=== PATIENT | female | born 1985 | race African-American/Black ===

== ENCOUNTER 2024-05-07 14:03 | Inpatient (IN) | payer MEDICAID, OTHER ==
[~2024-05-07] VITALS: Ht 165.1 cm; Wt 85.2 kg
[2024-05-07 15:13] VITALS: RESP 19
[2024-05-07 15:19] LABS: Basophils # (auto) 0 10 ^3/uL (0-0.2); Basophils % (auto) 0.1 % (0.0-2.0); Eosinophils # (auto) 0 10 ^3/uL (0-0.8); Eosinophils % (auto) 0.1 % (0.0-7.0); Hematocrit 13.8 % (36.0-46.0); Lymphocytes # (auto) 0.3 10 ^3/uL (0.4-5.4); Lymphocytes % (auto) 2.6 % (10.0-50.0); Mean Corpuscular Hgb Conc. 26.2 g/dL (32.0-36.0); Mean Corpuscular Volume 64.7 fL (80.0-100.0); Monocytes # (auto) 0.7 10 ^3/uL (0-1.3); Monocytes % (auto) 5.8 % (0.0-12.0); Neutrophils # (auto) 11.4 10 ^3/uL (1.6-8.6); Neutrophils % (auto) 91.4 % (37.0-80.0); Nucleated Red Blood Cells % 0.3 %; Red Blood Cells 2.14 10^6/uL (4.0-5.20); Red Cell Distribution Width 22.2 % (11.8-14.3); White Blood Cell 12.5 10^3/uL (4.4-10.8)
[2024-05-07 15:22] LABS: Hemoglobin 3.6 g/dL (12.2-16.2)
[2024-05-07 15:27] LABS: Chloride 110 mmol/L (98-107); Potassium 3.2 mmol/L (3.5-5.1); Sodium 139 mmol/L (136-145)
[2024-05-07 15:28] LABS: Anion Gap 9 (5-15); Calcium 8.2 mg/dL (8.7-10.4); Carbon Dioxide 20 mmol/L (20-30)
[2024-05-07 15:33] LABS: BUN/Creatinine Ratio 13.7 (10.0-20.0); Blood Urea Nitrogen 10 mg/dL (9-23); Glucose 112 mg/dL (74-106)
[2024-05-07 15:36] LABS: INR 0.96 (0.9-1.15); Partial Thromboplastin Time < 20.0 SEC (24.5-34.5); Prothrombin Time 10.2 sec (9.3-11.8)
[2024-05-07] MEDS: SODIUM CHLORIDE 0.9% 1,000 ML IV ONE (15:43)
[2024-05-07] MEDS: ACETAMINOPHEN 325 MG TAB PO ONE (16:06)
[2024-05-07 16:25] VITALS: BP 114/40; PULSE 115; RESP 18; TEMP 98.1
[2024-05-07 16:30] VITALS: BP 113/45; PULSE 110; RESP 19; TEMP 98.1
[2024-05-07 16:45] VITALS: BP 116/42; PULSE 96; RESP 18; TEMP 98.2
[2024-05-07] MEDS: POTASSIUM CHL 20MEQ/100ML 100 ML IV SCH (17:51)
[2024-05-07] MEDS ORDERED: NITROGLYCERIN 0.4 MG SL TAB SL PRN (18:15)
[2024-05-07 18:42] VITALS: BP 132/53; PULSE 102; RESP 18; TEMP 98.1
[2024-05-07 19:10] VITALS: PULSE 114; RESP 26; O2SAT 98
[2024-05-07 19:31] LABS: Hematocrit 24.9 % (36.0-46.0); Hemoglobin 7.5 g/dL (12.2-16.2)
[2024-05-07] MEDS: HYDROmorphone HCL 2 MG/ML VL/or syr IV PRN (19:31)
[2024-05-07] MEDS: HYDROcodone-ACET 5/325MG TAB PO PRN (22:38)
[2024-05-07] MEDS: LORazepam 2MG/ML-1ML VIAL IV PRN (23:06)
[2024-05-08] VITALS (52 sets, daily range): BP systolic 54–113; BP diastolic 21–73; PULSE 83–165; RESP 18–43; TEMP 97.8–103.4; O2SAT 81–100
[2024-05-08] MEDS: POTASSIUM CHL 20MEQ/100ML 100 ML IV ONE (00:30)
[2024-05-08] MEDS: SODIUM CHLORIDE 0.9% 1,000 ML IV SCH (00:30)
[2024-05-08] MEDS: ACETAMINOPHEN 325 MG TAB PO PRN (05:07)
[2024-05-08 07:35] LABS: Basophils # (auto) 0 10 ^3/uL (0-0.2); Eosinophils # (auto) 0 10 ^3/uL (0-0.8); Eosinophils % (auto) 0.1 % (0.0-7.0); Lymphocytes # (auto) 0.3 10 ^3/uL (0.4-5.4); Mean Corpuscular Hgb Conc. 30.6 g/dL (32.0-36.0)
[2024-05-08 07:36] LABS: Hematocrit 21.9 % (36.0-46.0); Mean Corpuscular Volume 75.3 fL (80.0-100.0); Monocytes # (auto) 0.2 10 ^3/uL (0-1.3); Monocytes % (auto) 2.1 % (0.0-12.0); Neutrophils # (auto) 8.1 10 ^3/uL (1.6-8.6); Neutrophils % (auto) 94.8 % (37.0-80.0); Red Blood Cells 2.91 10^6/uL (4.0-5.20); White Blood Cell 8.5 10^3/uL (4.4-10.8)
[2024-05-08 07:37] LABS: Red Cell Distribution Width 27.9 % (11.8-14.3)
[2024-05-08 07:38] LABS: Hemoglobin 6.7 g/dL (12.2-16.2)
[2024-05-08 07:50] LABS: Alanine Aminotransferase 12 U/L (7-40); Alkaline Phosphatase 29 U/L (46-116); Anion Gap 13 (5-15); Aspartate Aminotransferase 15 U/L (13-40); BUN/Creatinine Ratio 4.4 (10.0-20.0); Blood Urea Nitrogen 6 mg/dL (9-23); Calcium 8.1 mg/dL (8.7-10.4); Carbon Dioxide 14 mmol/L (20-30); Chloride 109 mmol/L (98-107); Glucose 105 mg/dL (74-106); Potassium 3.2 mmol/L (3.5-5.1); Sodium 136 mmol/L (136-145)
[2024-05-08 07:51] LABS: Bilirubin, Total 1.5 mg/dL (0.2-1.0); Total Protein 5.8 g/dL (5.7-8.2)
[2024-05-08 08:44] LABS: Anisocytosis Moderate; Hypochromia Moderate
[2024-05-08 08:46] LABS: Large Platelets FEW; Platelet Estimate Adequa
[2024-05-08] MEDS: MORPHINE SULFATE INJ 2 MG/ml SYRG IV PRN (09:37)
[2024-05-08 10:21] LABS: INR 1.11 (0.9-1.15); Partial Thromboplastin Time 24.6 SEC (24.5-34.5); Prothrombin Time 11.7 sec (9.3-11.8)
[2024-05-08] MEDS: levoFLOXacin 500MG 100 ML IV SCH (10:51)
[2024-05-08] MEDS: ESTROGENS, CONJUGATED 25 MG VIAL IV SCH (10:54)
[2024-05-08 11:29] LABS: Base Excess -13.1 mmol/L (-2.0-2.0)
[2024-05-08] MEDS: methylPREDNISolone SOD SUCC 125 MG/2 ML VL IV ONE (11:54)
[2024-05-08] MEDS: methylPREDNISolone SOD SUCC 1,000 MG in SODIUM CHL 0.9% 250 ML IV ONE (12:56)
[2024-05-08] MEDS: SODIUM BICARB 8.4% 50Meq/50ml SYR Vial IV ONE (13:45)
[2024-05-08 14:10] LABS: Hemoglobin 6.1 g/dL (12.2-16.2)
[2024-05-08 14:14] LABS: Potassium 3.2 mmol/L (3.5-5.1)
[2024-05-08 14:29] LABS: Lactic Acid w/Reflex 9.3 mmol/L (0.4-2.0); Magnesium 0.8 mg/dL (1.6-2.6)
[2024-05-08] MEDS: MAGNESIUM SULFATE 1GM/100ML 100 ML IV SCH ×2 (14:58→21:48)
[2024-05-08] MEDS: SODIUM BICARB 50mEq/50ml Vial 100 ML in D5W 5% 1,000 ML IV SCH (15:15)
[2024-05-08] MEDS: ONDANSETRON HCL 4 MG/2 ML VIAL IV PRN (16:04)
[2024-05-08] MEDS: NOREPINEPHRINE 8 MG/250ML KIT 250 ML IV SCH (17:20)
[2024-05-08] MEDS: FUROSEMIDE 20 MG/2 ML VIAL IV ONE ×2 (18:42→21:30)
[2024-05-08] MEDS: AMPICILLIN & SULBACTAM SODIUM 3 GM in SODIUM CHL 0.9% 100 ML IV SCH (18:42)
[2024-05-08] MEDS: PHENYLEPHRINE IV 250 ML IV SCH (18:45)
[2024-05-08 19:09] LABS: Basophils # (auto) 0 10 ^3/uL (0-0.2); Eosinophils # (auto) 0 10 ^3/uL (0-0.8)
[2024-05-08 19:11] LABS: Basophils % (auto) 0.2 % (0.0-2.0); Hematocrit 24.7 % (36.0-46.0); Hemoglobin 7.3 g/dL (12.2-16.2); Lymphocytes # (auto) 0.2 10 ^3/uL (0.4-5.4); Lymphocytes % (auto) 1.1 % (10.0-50.0); Mean Corpuscular Hemoglobin 23.6 pg (28.0-32.0); Mean Corpuscular Hgb Conc. 29.4 g/dL (32.0-36.0); Mean Corpuscular Volume 80.2 fL (80.0-100.0); Monocytes # (auto) 0.8 10 ^3/uL (0-1.3); Monocytes % (auto) 3.5 % (0.0-12.0); Neutrophils # (auto) 20.7 10 ^3/uL (1.6-8.6); Neutrophils % (auto) 95.2 % (37.0-80.0); Nucleated Red Blood Cells % 0.7 %; Red Blood Cells 3.08 10^6/uL (4.0-5.20); White Blood Cell 21.7 10^3/uL (4.4-10.8)
[2024-05-08] MEDS: VASOPRESSIN 20 UNITS in SODIUM CHL 0.9% 99 ML IV SCH (19:19)
[2024-05-08] MEDS: KETOROLAC TROMETH 30 MG/ML 1ML VIAL IV PRN (19:27)
[2024-05-08 19:30] LABS: Alanine Aminotransferase 12 U/L (7-40); Alkaline Phosphatase 18 U/L (46-116); Anion Gap 21.00001 (5-15); Aspartate Aminotransferase 24 U/L (13-40); BUN/Creatinine Ratio 4.7 (10.0-20.0); Bilirubin, Total 1.1 mg/dL (0.2-1.0); Blood Urea Nitrogen 13 mg/dL (9-23); Calcium 7.5 mg/dL (8.7-10.4); Chloride 106 mmol/L (98-107); Glucose 189 mg/dL (74-106); Potassium 3.9 mmol/L (3.5-5.1); Sodium 137 mmol/L (136-145)
[2024-05-08 19:31] LABS: Total Protein 5.6 g/dL (5.7-8.2)
[2024-05-08 19:45] LABS: Lactic Acid w/Reflex 10.9 mmol/L (0.4-2.0)
[2024-05-08 19:46] LABS: Carbon Dioxide < 10 mmol/L (20-30)
[2024-05-08 19:58] LABS: Anisocytosis Moderate; Platelet Estimate Decreased
[2024-05-08 19:59] LABS: Hypochromia Moderate
[2024-05-08] MEDS: ALBUMIN 25% 100 ML IV SCH (20:13)
[2024-05-08 20:28] LABS: Urine Bacteria FEW /hpf (None Seen); Urine Blood 3+ /uL (Negative); Urine Clarity Ex.Turbid (Clear); Urine Color Dark-Brown (Yellow); Urine Mucus FEW (None Seen); Urine Protein, UAD 2+ (Negative); Urine Specific Gravity 1.018 (1.001-1.035); Urine Urobilinogen Normal (Negative); Urine WBC 1660 /hpf (0 - 5); Urine WBC Clumps PRESENT /hpf (None Seen); Urine pH 5.5 (5.0-9.0)
[2024-05-08] MEDS: SODIUM CHLORIDE 0.9% 1,000 ML IV ONE (21:00)
[2024-05-08] MEDS: DOXYCYCLINE 100MG/250ML 250 ML IV SCH (21:21)
[2024-05-08] MEDS: SODIUM BICARB 50mEq/50ml Vial 150 ML in D5W 5% 1,000 ML IV SCH (21:58)
[2024-05-08 22:08] LABS: Hematocrit 25.6 % (36.0-46.0); Hemoglobin 7.2 g/dL (12.2-16.2); Mean Corpuscular Hemoglobin 23.8 pg (28.0-32.0); Mean Corpuscular Hgb Conc. 28.1 g/dL (32.0-36.0); Mean Corpuscular Volume 84.8 fL (80.0-100.0); Red Blood Cells 3.02 10^6/uL (4.0-5.20); White Blood Cell 22.7 10^3/uL (4.4-10.8)
[2024-05-08 22:12] LABS: Red Cell Distribution Width 27.2 % (11.8-14.3)
[2024-05-08 22:13] LABS: Basophils % (manual) 0 (0.0-2.0); Blast Cells 0; Eosinophils % (manual) 0 (0-7); Myelocytes % 0; Promyelocytes % 0; Reactive Lymphocytes 0
[2024-05-08 22:47] LABS: Band Neutrophils % (manual) 25; Lymphocytes % (manual) 2 (10.0-50.0); Monocytes % (manual) 5 (0-12)
[2024-05-08 22:48] LABS: Anisocytosis Moderate; Hypochromia Moderate; Large Platelets FEW; Metamyelocytes % 1; Platelet Estimate Decreased
[2024-05-09] VITALS (99 sets, daily range): BP systolic 49–184; BP diastolic 18–108; PULSE 62–119; RESP 12–35; TEMP 96.9–99.5; O2SAT 94–100
[2024-05-09 01:59] LABS: Hemoglobin 8.5 g/dL (12.2-16.2)
[2024-05-09 02:01] LABS: Hematocrit 27.6 % (36.0-46.0); Mean Corpuscular Hemoglobin 24.9 pg (28.0-32.0); Mean Corpuscular Hgb Conc. 30.7 g/dL (32.0-36.0); Mean Corpuscular Volume 81.2 fL (80.0-100.0); Red Cell Distribution Width 25.1 % (11.8-14.3); White Blood Cell 25.6 10^3/uL (4.4-10.8)
[2024-05-09 02:02] LABS: Basophils % (manual) 0 (0.0-2.0); Blast Cells 0; Eosinophils % (manual) 0 (0-7); Metamyelocytes % 0; Promyelocytes % 0; Reactive Lymphocytes 0
[2024-05-09 02:08] LABS: Chloride 103 mmol/L (98-107); Potassium 3.8 mmol/L (3.5-5.1); Sodium 134 mmol/L (136-145)
[2024-05-09 02:10] LABS: Anion Gap 18 (5-15); Carbon Dioxide 13 mmol/L (20-30)
[2024-05-09 02:15] LABS: BUN/Creatinine Ratio 5.5 (10.0-20.0); Blood Urea Nitrogen 12 mg/dL (9-23); Glucose 285 mg/dL (74-106)
[2024-05-09 02:19] LABS: Anisocytosis Slight; Band Neutrophils % (manual) 18; Hypochromia Slight; Lymphocytes % (manual) 1 (10.0-50.0); Monocytes % (manual) 6 (0-12); Myelocytes % 1; Platelet Estimate Decreased
[2024-05-09 02:20] LABS: Large Platelets FEW
[2024-05-09] MEDS: FUROSEMIDE 20 MG/2 ML VIAL IV ONE (03:22)
[2024-05-09 04:59] LABS: Basophils # (auto) 0 10 ^3/uL (0-0.2); Eosinophils # (auto) 0 10 ^3/uL (0-0.8); Hemoglobin 8.1 g/dL (12.2-16.2); Monocytes % (auto) 4.5 % (0.0-12.0); Nucleated Red Blood Cells % 0.2 %
[2024-05-09 05:01] LABS: Basophils % (auto) 0.1 % (0.0-2.0); Hematocrit 26.1 % (36.0-46.0); Lymphocytes # (auto) 0.4 10 ^3/uL (0.4-5.4); Lymphocytes % (auto) 1.5 % (10.0-50.0); Mean Corpuscular Hemoglobin 24.9 pg (28.0-32.0); Mean Corpuscular Volume 80.3 fL (80.0-100.0); Neutrophils % (auto) 93.9 % (37.0-80.0); Red Blood Cells 3.25 10^6/uL (4.0-5.20); White Blood Cell 23.4 10^3/uL (4.4-10.8)
[2024-05-09 05:11] LABS: Red Cell Distribution Width 25.4 % (11.8-14.3)
[2024-05-09 05:43] LABS: Lactic Acid w/Reflex 9.3 mmol/L (0.4-2.0)
[2024-05-09] MEDS ORDERED: MORPHINE SULFATE INJ 2 MG/ml SYRG IV PRN (08:15)
[2024-05-09] MEDS ORDERED: NITROGLYCERIN 0.4 MG SL TAB SL PRN (08:15)
[2024-05-09] MEDS ORDERED: cefTRIAXone 1GM/50ML D5W 50 ML IV SCH (09:00)
[2024-05-09] MEDS ORDERED: fentaNYL CITRATE 100 MCG/2 ML VL ONE ×2 (09:23→14:52)
[2024-05-09] MEDS ORDERED: KETAMINE 50mg/ML 1ml syringe ONE ×2 (09:23→13:47)
[2024-05-09] MEDS ORDERED: ROCURONIUM 10MG/ML 10ML VIAL IV ONE (09:24)
[2024-05-09] MEDS ORDERED: MEPERIDINE HCL (50 MG/ML) 1 ML VIAL ONE ×2 (09:24→15:08)
[2024-05-09] MEDS ORDERED: LIDOCAINE 1% INJ PF 5ML AMP ONE (09:24)
[2024-05-09] MEDS ORDERED: LIDOCAINE HCL 2% TOP JELLY 5ML TOP ONE (09:24)
[2024-05-09] MEDS ORDERED: MIDAZOLAM HCL 2MG/2ML 2ml VIAL (1mg/ml) ONE ×2 (09:24→15:10)
[2024-05-09] MEDS ORDERED: ETOMIDATE (2MG/ML) 20ML VIAL IV ONE (09:24)
[2024-05-09] MEDS ORDERED: SODIUM CHLORIDE LOCK 50 ML ONE (09:24)
[2024-05-09 09:59] LABS: Anion Gap 17 (5-15); Carbon Dioxide 18 mmol/L (20-30); Chloride 100 mmol/L (98-107); Potassium 3.4 mmol/L (3.5-5.1); Sodium 135 mmol/L (136-145)
[2024-05-09 10:00] LABS: Calcium 8.4 mg/dL (8.7-10.4)
[2024-05-09 10:05] LABS: BUN/Creatinine Ratio 7.9 (10.0-20.0); Blood Urea Nitrogen 13 mg/dL (9-23); Glucose 228 mg/dL (74-106)
[2024-05-09] MEDS: LIDOCAINE W/ EPINEPHRINE 1% 20ML VIAL ONE (10:09)
[2024-05-09 11:08] LABS: Basophils # (auto) 0 10 ^3/uL (0-0.2); Basophils % (auto) 0.1 % (0.0-2.0); Eosinophils # (auto) 0 10 ^3/uL (0-0.8); Hematocrit 24.8 % (36.0-46.0); Hemoglobin 7.7 g/dL (12.2-16.2); Lymphocytes # (auto) 0.3 10 ^3/uL (0.4-5.4); Lymphocytes % (auto) 1.3 % (10.0-50.0); Mean Corpuscular Hemoglobin 24.2 pg (28.0-32.0); Mean Corpuscular Volume 78.2 fL (80.0-100.0); Monocytes # (auto) 1.2 10 ^3/uL (0-1.3); Monocytes % (auto) 5.2 % (0.0-12.0); Neutrophils # (auto) 22.4 10 ^3/uL (1.6-8.6); Neutrophils % (auto) 93.4 % (37.0-80.0); Nucleated Red Blood Cells % 0.5 %; Red Blood Cells 3.17 10^6/uL (4.0-5.20)
[2024-05-09 11:09] LABS: Red Cell Distribution Width 25.3 % (11.8-14.3)
[2024-05-09] MEDS: ceFAZolin 2 GM/D5W50ml 50 ML IV ONE (11:14)
[2024-05-09] MEDS: SODIUM BICARB 8.4% 50Meq/50ml SYR Vial IV ONE (13:52)
[2024-05-09] MEDS: CALCIUM CHLOR(10%) 100MG/ML 10ML SYRINGE IV ONE (13:54)
[2024-05-09 15:08] LABS: Base Excess -3.3 mmol/L (-2.0-2.0)
[2024-05-09] MEDS: FERRIC SUBSULFATE TOPICAL SOLN 30 ML BTL ONE (15:49)
[2024-05-09] MEDS: MIDAZOLAM DRIP 50 mg/50mL 50 ML IV SCH (17:35)
[2024-05-09] MEDS: fentaNYL Drip 2500mCg/250mlNS 250 ML IV SCH (17:38)
[2024-05-09 17:49] LABS: Mean Corpuscular Hgb Conc. 32.3 g/dL (32.0-36.0)
[2024-05-09 17:50] LABS: Mean Corpuscular Hemoglobin 26.8 pg (28.0-32.0); Mean Corpuscular Volume 82.9 fL (80.0-100.0); Red Blood Cells 3.38 10^6/uL (4.0-5.20)
[2024-05-09 17:51] LABS: Red Cell Distribution Width 23.2 % (11.8-14.3)
[2024-05-09 17:53] LABS: Basophils % (manual) 0 (0.0-2.0); Blast Cells 0; Eosinophils % (manual) 0 (0-7); Metamyelocytes % 0; Myelocytes % 0; Promyelocytes % 0; Reactive Lymphocytes 0
[2024-05-09 18:15] LABS: INR 1.11 (0.9-1.15); Partial Thromboplastin Time 32.2 SEC (24.5-34.5); Prothrombin Time 11.7 sec (9.3-11.8)
[2024-05-09 18:28] LABS: Chloride 104 mmol/L (98-107); Potassium 3.2 mmol/L (3.5-5.1); Sodium 137 mmol/L (136-145)
[2024-05-09 18:29] LABS: Anion Gap 11 (5-15); Carbon Dioxide 22 mmol/L (20-30)
[2024-05-09 18:30] LABS: Calcium 8.2 mg/dL (8.7-10.4)
[2024-05-09 18:34] LABS: BUN/Creatinine Ratio 8.1 (10.0-20.0); Blood Urea Nitrogen 9 mg/dL (9-23); Glucose 167 mg/dL (74-106)
[2024-05-09 18:59] LABS: Anisocytosis Slight; Band Neutrophils % (manual) 15; Lymphocytes % (manual) 4 (10.0-50.0); Monocytes % (manual) 11 (0-12); Platelet Estimate Decreased
[2024-05-09 20:10] LABS: Hematocrit 27.6 % (36.0-46.0); Hemoglobin 8.9 g/dL (12.2-16.2); Lymphocytes # (auto) 0.3 10 ^3/uL (0.4-5.4); Lymphocytes % (auto) 1.2 % (10.0-50.0); Mean Corpuscular Hemoglobin 26.7 pg (28.0-32.0); Monocytes # (auto) 1.2 10 ^3/uL (0-1.3); White Blood Cell 24.4 10^3/uL (4.4-10.8)
[2024-05-09 20:11] LABS: Alanine Aminotransferase 14 U/L (7-40); Albumin 2.9 g/dL (3.2-4.8); Alkaline Phosphatase 46 U/L (46-116); Anion Gap 12 (5-15); Aspartate Aminotransferase 33 U/L (13-40); Blood Urea Nitrogen 10 mg/dL (9-23); Calcium 8.4 mg/dL (8.7-10.4); Carbon Dioxide 24 mmol/L (20-30); Chloride 102 mmol/L (98-107); Glucose 184 mg/dL (74-106); Potassium 3.3 mmol/L (3.5-5.1); Sodium 138 mmol/L (136-145)
[2024-05-09 20:12] LABS: Basophils # (auto) 0.1 10 ^3/uL (0-0.2); Basophils % (auto) 0.3 % (0.0-2.0); Bilirubin, Total 1.9 mg/dL (0.2-1.0); Eosinophils # (auto) 0 10 ^3/uL (0-0.8); Eosinophils % (auto) 0.1 % (0.0-7.0); Mean Corpuscular Hgb Conc. 32.1 g/dL (32.0-36.0); Mean Corpuscular Volume 83.1 fL (80.0-100.0); Monocytes % (auto) 4.9 % (0.0-12.0); Neutrophils # (auto) 22.9 10 ^3/uL (1.6-8.6); Neutrophils % (auto) 93.5 % (37.0-80.0); Nucleated Red Blood Cells % 0.7 %; Red Blood Cells 3.32 10^6/uL (4.0-5.20); Total Protein 5.1 g/dL (5.7-8.2)
[2024-05-09] MEDS: AMPICILLIN & SULBACTAM SODIUM 3 GM in SODIUM CHL 0.9% 100 ML IV SCH (21:12)
[2024-05-09] MEDS: POTASSIUM CHL 20MEQ/100ML 100 ML IV ONE (22:18)
[2024-05-10] VITALS (100 sets, daily range): BP systolic 84–218; BP diastolic 49–191; PULSE 62–102; RESP 12–24; TEMP 97.3–99.9; O2SAT 89–100
[2024-05-10 00:23] LABS: Hemoglobin 8.1 g/dL (12.2-16.2); Mean Corpuscular Hgb Conc. 33.5 g/dL (32.0-36.0); White Blood Cell 26.3 10^3/uL (4.4-10.8)
[2024-05-10 00:25] LABS: Hematocrit 24.1 % (36.0-46.0); Mean Corpuscular Volume 80.7 fL (80.0-100.0); Red Blood Cells 2.99 10^6/uL (4.0-5.20)
[2024-05-10 00:26] LABS: Red Cell Distribution Width 23.5 % (11.8-14.3)
[2024-05-10 00:28] LABS: Basophils % (manual) 0 (0.0-2.0); Blast Cells 0; Eosinophils % (manual) 0 (0-7); Metamyelocytes % 0; Promyelocytes % 0; Reactive Lymphocytes 0
[2024-05-10 00:44] LABS: Chloride 101 mmol/L (98-107); Potassium 3.6 mmol/L (3.5-5.1); Sodium 137 mmol/L (136-145)
[2024-05-10 00:45] LABS: Anion Gap 8 (5-15); Calcium 8.1 mg/dL (8.7-10.4); Carbon Dioxide 28 mmol/L (20-30)
[2024-05-10 00:50] LABS: BUN/Creatinine Ratio 11.7 (10.0-20.0); Blood Urea Nitrogen 12 mg/dL (9-23); Glucose 167 mg/dL (74-106); Magnesium 1.8 mg/dL (1.6-2.6)
[2024-05-10 00:57] LABS: Band Neutrophils % (manual) 20; Lymphocytes % (manual) 4 (10.0-50.0); Monocytes % (manual) 4 (0-12); Myelocytes % 2
[2024-05-10 00:58] LABS: Anisocytosis Slight; Hypochromia Slight; Platelet Estimate Decreased
[2024-05-10 00:59] LABS: Ovalocytes FEW
[2024-05-10] MEDS: SODIUM CHLORIDE 0.9% 1,000 ML IV SCH (03:00)
[2024-05-10 04:03] LABS: Eosinophils # (auto) 0.1 10 ^3/uL (0-0.8); Hematocrit 23.5 % (36.0-46.0); Monocytes # (auto) 1.2 10 ^3/uL (0-1.3)
[2024-05-10 04:05] LABS: Basophils # (auto) 0.1 10 ^3/uL (0-0.2); Basophils % (auto) 0.3 % (0.0-2.0); Eosinophils % (auto) 0.5 % (0.0-7.0); Hemoglobin 7.9 g/dL (12.2-16.2); Lymphocytes # (auto) 0.4 10 ^3/uL (0.4-5.4); Lymphocytes % (auto) 1.3 % (10.0-50.0); Mean Corpuscular Hgb Conc. 33.5 g/dL (32.0-36.0); Mean Corpuscular Volume 80.6 fL (80.0-100.0); Monocytes % (auto) 4.2 % (0.0-12.0); Neutrophils % (auto) 93.7 % (37.0-80.0); Nucleated Red Blood Cells % 0.6 %; Red Blood Cells 2.92 10^6/uL (4.0-5.20); White Blood Cell 27.8 10^3/uL (4.4-10.8)
[2024-05-10 04:06] LABS: Red Cell Distribution Width 23.3 % (11.8-14.3)
[2024-05-10 04:13] LABS: Chloride 100 mmol/L (98-107); Potassium 3.3 mmol/L (3.5-5.1); Sodium 137 mmol/L (136-145)
[2024-05-10 04:14] LABS: Anion Gap 7 (5-15); Calcium 8.2 mg/dL (8.7-10.4); Carbon Dioxide 30 mmol/L (20-30)
[2024-05-10 04:19] LABS: Blood Urea Nitrogen 13 mg/dL (9-23); Glucose 166 mg/dL (74-106)
[2024-05-10] MEDS: POTASSIUM CHL 20MEQ/100ML 100 ML IV ONE (05:26)
[2024-05-10] MEDS: MAGNESIUM SULFATE 1GM/100ML 100 ML IV ONE (05:26)
[2024-05-10 08:05] LABS: Base Excess 5.8 mmol/L (-2.0-2.0)
[2024-05-10] MEDS: POTASSIUM CHL 20MEQ/100ML 100 ML IV SCH (09:27)
[2024-05-10 10:15] LABS: Hemoglobin 7.6 g/dL (12.2-16.2); Mean Corpuscular Hemoglobin 26.4 pg (28.0-32.0)
[2024-05-10 10:17] LABS: Basophils # (auto) 0.1 10 ^3/uL (0-0.2); Basophils % (auto) 0.4 % (0.0-2.0); Eosinophils # (auto) 0 10 ^3/uL (0-0.8); Hematocrit 23.2 % (36.0-46.0); Lymphocytes # (auto) 0.8 10 ^3/uL (0.4-5.4); Lymphocytes % (auto) 3.1 % (10.0-50.0); Mean Corpuscular Hgb Conc. 32.8 g/dL (32.0-36.0); Mean Corpuscular Volume 80.3 fL (80.0-100.0); Monocytes # (auto) 1.1 10 ^3/uL (0-1.3); Monocytes % (auto) 4.1 % (0.0-12.0); Neutrophils # (auto) 23.7 10 ^3/uL (1.6-8.6); Neutrophils % (auto) 92.4 % (37.0-80.0); Nucleated Red Blood Cells % 0.7 %; Red Blood Cells 2.89 10^6/uL (4.0-5.20); White Blood Cell 25.6 10^3/uL (4.4-10.8)
[2024-05-10 10:20] LABS: Red Cell Distribution Width 23.2 % (11.8-14.3)
[2024-05-10 10:29] LABS: Anion Gap 6 (5-15); Carbon Dioxide 32 mmol/L (20-30); Chloride 99 mmol/L (98-107); Potassium 3.8 mmol/L (3.5-5.1); Sodium 137 mmol/L (136-145)
[2024-05-10 10:30] LABS: Calcium 8.5 mg/dL (8.7-10.4)
[2024-05-10 10:35] LABS: BUN/Creatinine Ratio 13.9 (10.0-20.0); Blood Urea Nitrogen 14 mg/dL (9-23); Glucose 131 mg/dL (74-106)
[2024-05-10 11:10] LABS: Anisocytosis Slight; Platelet Estimate Decreased
[2024-05-10 13:07] LABS: Base Excess 5.9 mmol/L (-2.0-2.0)
[2024-05-10 13:08] LABS: Chlamydia Trachomatis, NAA Negative (Negative); Neisseria gonorrhoeae, NAA Negative (Negative)
[2024-05-10 14:15] LABS: Basophils # (auto) 0 10 ^3/uL (0-0.2); Basophils % (auto) 0.1 % (0.0-2.0); Eosinophils # (auto) 0 10 ^3/uL (0-0.8); Eosinophils % (auto) 0.1 % (0.0-7.0); Hematocrit 23.1 % (36.0-46.0); Hemoglobin 7.6 g/dL (12.2-16.2); Lymphocytes # (auto) 0.9 10 ^3/uL (0.4-5.4); Lymphocytes % (auto) 3.3 % (10.0-50.0); Mean Corpuscular Hemoglobin 26.5 pg (28.0-32.0); Mean Corpuscular Hgb Conc. 32.9 g/dL (32.0-36.0); Mean Corpuscular Volume 80.8 fL (80.0-100.0); Monocytes # (auto) 1.1 10 ^3/uL (0-1.3); Monocytes % (auto) 3.9 % (0.0-12.0); Neutrophils # (auto) 26.9 10 ^3/uL (1.6-8.6); Neutrophils % (auto) 92.6 % (37.0-80.0); Nucleated Red Blood Cells % 0.5 %; Red Blood Cells 2.86 10^6/uL (4.0-5.20)
[2024-05-10 14:19] LABS: Red Cell Distribution Width 23.8 % (11.8-14.3)
[2024-05-10 14:31] LABS: Anion Gap 5 (5-15); Carbon Dioxide 31 mmol/L (20-30); Chloride 101 mmol/L (98-107); Potassium 4.4 mmol/L (3.5-5.1); Sodium 137 mmol/L (136-145)
[2024-05-10 14:32] LABS: Calcium 8.6 mg/dL (8.7-10.4)
[2024-05-10 14:37] LABS: BUN/Creatinine Ratio 12.9 (10.0-20.0); Blood Urea Nitrogen 13 mg/dL (9-23); Glucose 127 mg/dL (74-106)
[2024-05-10] MEDS: FUROSEMIDE 20 MG/2 ML VIAL IV ONE (16:45)
[2024-05-10 18:15] LABS: Hematocrit 21.9 % (36.0-46.0); Hemoglobin 7.1 g/dL (12.2-16.2); Mean Corpuscular Hemoglobin 26.1 pg (28.0-32.0); Mean Corpuscular Hgb Conc. 32.5 g/dL (32.0-36.0); Mean Corpuscular Volume 80.4 fL (80.0-100.0); Red Blood Cells 2.73 10^6/uL (4.0-5.20); White Blood Cell 27.2 10^3/uL (4.4-10.8)
[2024-05-10 18:16] LABS: Red Cell Distribution Width 24.3 % (11.8-14.3)
[2024-05-10 18:18] LABS: Basophils % (manual) 0 (0.0-2.0); Blast Cells 0; Eosinophils % (manual) 0 (0-7); Metamyelocytes % 0; Myelocytes % 0; Promyelocytes % 0; Reactive Lymphocytes 0
[2024-05-10 18:24] LABS: Chloride 102 mmol/L (98-107); Sodium 140 mmol/L (136-145)
[2024-05-10 18:25] LABS: Anion Gap 5 (5-15); Carbon Dioxide 33 mmol/L (20-30)
[2024-05-10 18:26] LABS: Calcium 8.5 mg/dL (8.7-10.4)
[2024-05-10 18:31] LABS: BUN/Creatinine Ratio 15.8 (10.0-20.0); Blood Urea Nitrogen 16 mg/dL (9-23); Glucose 119 mg/dL (74-106)
[2024-05-10 18:36] LABS: Lactic Acid w/Reflex 2.3 mmol/L (0.4-2.0)
[2024-05-10 18:54] LABS: Band Neutrophils % (manual) 5; Lymphocytes % (manual) 3 (10.0-50.0); Monocytes % (manual) 3 (0-12)
[2024-05-10 18:57] LABS: Anisocytosis Moderate; Ovalocytes FEW
[2024-05-10 18:58] LABS: Platelet Estimate Decreased
[2024-05-10 22:35] LABS: Basophils # (auto) 0.1 10 ^3/uL (0-0.2); Mean Corpuscular Hgb Conc. 33.2 g/dL (32.0-36.0)
[2024-05-10 22:38] LABS: Basophils % (auto) 0.2 % (0.0-2.0); Eosinophils # (auto) 0 10 ^3/uL (0-0.8); Hematocrit 21.1 % (36.0-46.0); Lymphocytes # (auto) 1.1 10 ^3/uL (0.4-5.4); Lymphocytes % (auto) 4.3 % (10.0-50.0); Mean Corpuscular Hemoglobin 26.6 pg (28.0-32.0); Mean Corpuscular Volume 80.3 fL (80.0-100.0); Monocytes # (auto) 0.9 10 ^3/uL (0-1.3); Monocytes % (auto) 3.5 % (0.0-12.0); Nucleated Red Blood Cells % 0.5 %; Red Blood Cells 2.63 10^6/uL (4.0-5.20)
[2024-05-10 22:46] LABS: Chloride 102 mmol/L (98-107); Potassium 3.8 mmol/L (3.5-5.1); Sodium 138 mmol/L (136-145)
[2024-05-10 22:47] LABS: Anion Gap 6 (5-15); Calcium 8.5 mg/dL (8.7-10.4); Carbon Dioxide 30 mmol/L (20-30)
[2024-05-10 22:48] LABS: Red Cell Distribution Width 24.4 % (11.8-14.3)
[2024-05-10 22:52] LABS: BUN/Creatinine Ratio 18.8 (10.0-20.0); Blood Urea Nitrogen 18 mg/dL (9-23); Glucose 128 mg/dL (74-106); Magnesium 2.2 mg/dL (1.6-2.6)
[2024-05-11] VITALS (41 sets, daily range): BP systolic 90–129; BP diastolic 54–86; PULSE 60–94; RESP 14–22; TEMP 96.8–98.3; O2SAT 92–100
[2024-05-11 03:57] LABS: Basophils # (auto) 0 10 ^3/uL (0-0.2); Basophils % (auto) 0.1 % (0.0-2.0); Eosinophils # (auto) 0 10 ^3/uL (0-0.8); Eosinophils % (auto) 0.2 % (0.0-7.0); White Blood Cell 22.7 10^3/uL (4.4-10.8)
[2024-05-11 04:11] LABS: Lymphocytes # (auto) 1.3 10 ^3/uL (0.4-5.4); Lymphocytes % (auto) 5.8 % (10.0-50.0); Mean Corpuscular Hemoglobin 26.2 pg (28.0-32.0); Mean Corpuscular Hgb Conc. 32.1 g/dL (32.0-36.0); Mean Corpuscular Volume 81.7 fL (80.0-100.0); Monocytes # (auto) 0.3 10 ^3/uL (0-1.3); Monocytes % (auto) 1.4 % (0.0-12.0); Neutrophils % (auto) 92.5 % (37.0-80.0); Nucleated Red Blood Cells % 0.7 %; Red Blood Cells 2.57 10^6/uL (4.0-5.20)
[2024-05-11 04:23] LABS: Red Cell Distribution Width 23.6 % (11.8-14.3)
[2024-05-11 04:24] LABS: Hemoglobin 6.7 g/dL (12.2-16.2)
[2024-05-11 15:24] LABS: Hematocrit 29.7 % (36.0-46.0); Hemoglobin 9.5 g/dL (12.2-16.2)
[2024-05-11] MEDS: HYDROmorphone HCL 2 MG/ML VL/or syr IV PRN (17:16)
[2024-05-12 04:55] VITALS: BP 99/60; PULSE 64; RESP 18; TEMP 97.8; O2SAT 98
[2024-05-12 05:32] LABS: Basophils # (auto) 0 10 ^3/uL (0-0.2); Basophils % (auto) 0.2 % (0.0-2.0); Lymphocytes # (auto) 3.1 10 ^3/uL (0.4-5.4); Red Cell Distribution Width 22.7 % (11.8-14.3)
[2024-05-12 05:33] LABS: Eosinophils # (auto) 0.1 10 ^3/uL (0-0.8); Eosinophils % (auto) 0.5 % (0.0-7.0); Lymphocytes % (auto) 19.5 % (10.0-50.0); Mean Corpuscular Hemoglobin 26.3 pg (28.0-32.0); Mean Corpuscular Hgb Conc. 32.3 g/dL (32.0-36.0); Mean Corpuscular Volume 81.3 fL (80.0-100.0); Monocytes # (auto) 1.1 10 ^3/uL (0-1.3); Monocytes % (auto) 7.2 % (0.0-12.0); Neutrophils # (auto) 11.5 10 ^3/uL (1.6-8.6); Neutrophils % (auto) 72.6 % (37.0-80.0); Nucleated Red Blood Cells % 2.6 %; Red Blood Cells 3.44 10^6/uL (4.0-5.20); White Blood Cell 15.8 10^3/uL (4.4-10.8)
[2024-05-12 05:50] LABS: Alanine Aminotransferase 25 U/L (7-40); Albumin 2.8 g/dL (3.2-4.8); Alkaline Phosphatase 57 U/L (46-116); Anion Gap 2 (5-15); Aspartate Aminotransferase 27 U/L (13-40); BUN/Creatinine Ratio 22.9 (10.0-20.0); Bilirubin, Total 0.8 mg/dL (0.2-1.0); Blood Urea Nitrogen 19 mg/dL (9-23); Calcium 8.2 mg/dL (8.7-10.4); Carbon Dioxide 32 mmol/L (20-30); Chloride 106 mmol/L (98-107); Glucose 74 mg/dL (74-106); Potassium 3.1 mmol/L (3.5-5.1); Sodium 140 mmol/L (136-145)
[2024-05-12 05:53] LABS: Stomatocytes Few; Tear Drop Cells FEW
[2024-05-12 05:54] LABS: Large Platelets FEW; Platelet Estimate Decrea
[2024-05-12 08:00] VITALS: BP 102/65; PULSE 68; PULSE 69; RESP 18; TEMP 97.9; O2SAT 94
[2024-05-12] MEDS: POTASSIUM CHL 20 Meq TABLET PO ONE (08:41)
[2024-05-12] MEDS: AMPICILLIN & SULBACTAM SODIUM 3 GM in SODIUM CHL 0.9% 100 ML IV SCH (10:49)
[2024-05-12 12:00] VITALS: BP 112/66; PULSE 61; RESP 16; TEMP 98.5; O2SAT 97
[2024-05-12 16:53] VITALS: BP 113/71; PULSE 66; RESP 16; TEMP 97.9; O2SAT 95
[2024-05-12 20:00] VITALS: PULSE 64; PULSE 73; RESP 17; O2SAT 98
[2024-05-12 21:11] VITALS: BP 108/67; PULSE 66; RESP 18; TEMP 98.1; O2SAT 99
[2024-05-13] VITALS (8 sets, daily range): BP systolic 106–140; BP diastolic 58–78; PULSE 61–73; RESP 16–20; TEMP 97.6–98.7; O2SAT 97–100
[2024-05-13 07:28] LABS: Basophils # (auto) 0 10 ^3/uL (0-0.2); Basophils % (auto) 0.1 % (0.0-2.0); Eosinophils # (auto) 0.2 10 ^3/uL (0-0.8); Eosinophils % (auto) 1.6 % (0.0-7.0); Hematocrit 26.5 % (36.0-46.0); Hemoglobin 8.7 g/dL (12.2-16.2); Lymphocytes # (auto) 3.3 10 ^3/uL (0.4-5.4); Lymphocytes % (auto) 30.8 % (10.0-50.0); Mean Corpuscular Hemoglobin 27.1 pg (28.0-32.0); Mean Corpuscular Hgb Conc. 32.8 g/dL (32.0-36.0); Mean Corpuscular Volume 82.6 fL (80.0-100.0); Monocytes # (auto) 0.9 10 ^3/uL (0-1.3); Neutrophils # (auto) 6.4 10 ^3/uL (1.6-8.6); Neutrophils % (auto) 59.5 % (37.0-80.0); Nucleated Red Blood Cells % 2.6 %; Red Blood Cells 3.21 10^6/uL (4.0-5.20); White Blood Cell 10.7 10^3/uL (4.4-10.8)
[2024-05-13 07:29] LABS: Red Cell Distribution Width 22.6 % (11.8-14.3)
[2024-05-13 07:34] LABS: Anion Gap 9 (5-15); Carbon Dioxide 25 mmol/L (20-30); Chloride 107 mmol/L (98-107); Sodium 141 mmol/L (136-145)
[2024-05-13 07:35] LABS: Calcium 8.3 mg/dL (8.7-10.4)
[2024-05-13 07:40] LABS: BUN/Creatinine Ratio 16.2 (10.0-20.0); Blood Urea Nitrogen 11 mg/dL (9-23); Glucose 69 mg/dL (74-106)
[2024-05-13] MEDS: POTASSIUM CHL 20 Meq TABLET PO ONE (09:00)
[2024-05-14] VITALS (8 sets, daily range): BP systolic 105–132; BP diastolic 53–87; PULSE 58–69; RESP 15–18; TEMP 97.9–98.2; O2SAT 94–100
[2024-05-14 07:29] LABS: Anion Gap 5 (5-15); Calcium 8.6 mg/dL (8.7-10.4); Carbon Dioxide 28 mmol/L (20-30); Chloride 107 mmol/L (98-107); Potassium 3.3 mmol/L (3.5-5.1); Sodium 140 mmol/L (136-145)
[2024-05-14 07:34] LABS: Glucose 75 mg/dL (74-106)
[2024-05-14 07:35] LABS: BUN/Creatinine Ratio 7.4 (10.0-20.0); Blood Urea Nitrogen 5 mg/dL (9-23)
[2024-05-14 07:36] LABS: Magnesium 1.4 mg/dL (1.6-2.6)
[2024-05-14 07:45] LABS: Basophils # (auto) 0 10 ^3/uL (0-0.2); Eosinophils # (auto) 0.2 10 ^3/uL (0-0.8); Eosinophils % (auto) 2.1 % (0.0-7.0); Hemoglobin 8.7 g/dL (12.2-16.2); Monocytes # (auto) 0.7 10 ^3/uL (0-1.3); Nucleated Red Blood Cells % 0.8 %
[2024-05-14 07:51] LABS: Basophils % (auto) 0.3 % (0.0-2.0); Hematocrit 25.8 % (36.0-46.0); Lymphocytes # (auto) 2.8 10 ^3/uL (0.4-5.4); Lymphocytes % (auto) 26.8 % (10.0-50.0); Mean Corpuscular Hemoglobin 27.6 pg (28.0-32.0); Mean Corpuscular Hgb Conc. 33.8 g/dL (32.0-36.0); Mean Corpuscular Volume 81.7 fL (80.0-100.0); Monocytes % (auto) 6.9 % (0.0-12.0); Neutrophils # (auto) 6.7 10 ^3/uL (1.6-8.6); Neutrophils % (auto) 63.9 % (37.0-80.0); Red Blood Cells 3.16 10^6/uL (4.0-5.20); White Blood Cell 10.4 10^3/uL (4.4-10.8)
[2024-05-14 08:11] LABS: Red Cell Distribution Width 22.9 % (11.8-14.3)
[2024-05-15] VITALS (8 sets, daily range): BP systolic 101–133; BP diastolic 56–74; PULSE 64–77; RESP 15–18; TEMP 97.8–98.2; O2SAT 96–99
[2024-05-15] MEDS ORDERED: POLYETHYLENE GLYCOL 17 GM PWDR PO PRN (14:45)
[2024-05-15 15:20] LABS: Eosinophils # (auto) 0.1 10 ^3/uL (0-0.8); Hemoglobin 9.1 g/dL (12.2-16.2); Lymphocytes # (auto) 2.2 10 ^3/uL (0.4-5.4); Monocytes # (auto) 0.6 10 ^3/uL (0-1.3); Neutrophils # (auto) 9.1 10 ^3/uL (1.6-8.6)
[2024-05-15 15:22] LABS: Basophils # (auto) 0.1 10 ^3/uL (0-0.2); Basophils % (auto) 0.5 % (0.0-2.0); Hematocrit 27.8 % (36.0-46.0); Mean Corpuscular Hemoglobin 26.8 pg (28.0-32.0); Mean Corpuscular Hgb Conc. 32.9 g/dL (32.0-36.0); Mean Corpuscular Volume 81.2 fL (80.0-100.0); Monocytes % (auto) 4.9 % (0.0-12.0); Neutrophils % (auto) 75.6 % (37.0-80.0); Nucleated Red Blood Cells % 0.1 %; Red Blood Cells 3.42 10^6/uL (4.0-5.20); White Blood Cell 12.1 10^3/uL (4.4-10.8)
[2024-05-15 15:33] LABS: Red Cell Distribution Width 24.2 % (11.8-14.3)
[2024-05-15] MEDS: HYDROmorphone HCL 2 MG/ML VL/or syr IV PRN (17:53)
[2024-05-15] MEDS: DOCUSATE SOD 100 MG CAP PO SCH (21:54)
[2024-05-16 01:00] VITALS: BP 131/69; PULSE 68; RESP 16; TEMP 98.1; O2SAT 99
[2024-05-16 05:00] VITALS: BP 122/62; PULSE 66; RESP 16; TEMP 97.8; O2SAT 96
[2024-05-16 07:14] LABS: Basophils # (auto) 0 10 ^3/uL (0-0.2); Eosinophils # (auto) 0.1 10 ^3/uL (0-0.8); Hemoglobin 9.3 g/dL (12.2-16.2); Nucleated Red Blood Cells % 0.2 %
[2024-05-16 07:16] LABS: Anion Gap 9 (5-15); Carbon Dioxide 26 mmol/L (20-30); Chloride 104 mmol/L (98-107); Potassium 3.1 mmol/L (3.5-5.1); Sodium 139 mmol/L (136-145)
[2024-05-16 07:18] LABS: Calcium 9.1 mg/dL (8.7-10.4)
[2024-05-16 07:19] LABS: Basophils % (auto) 0.2 % (0.0-2.0); Eosinophils % (auto) 0.5 % (0.0-7.0); Lymphocytes # (auto) 2.3 10 ^3/uL (0.4-5.4); Lymphocytes % (auto) 21.4 % (10.0-50.0); Mean Corpuscular Hemoglobin 27.9 pg (28.0-32.0); Mean Corpuscular Hgb Conc. 34.5 g/dL (32.0-36.0); Mean Corpuscular Volume 80.8 fL (80.0-100.0); Monocytes # (auto) 0.6 10 ^3/uL (0-1.3); Monocytes % (auto) 5.6 % (0.0-12.0); Neutrophils # (auto) 7.9 10 ^3/uL (1.6-8.6); Neutrophils % (auto) 72.3 % (37.0-80.0); Red Blood Cells 3.34 10^6/uL (4.0-5.20)
[2024-05-16 07:23] LABS: Glucose 80 mg/dL (74-106)
[2024-05-16 07:25] LABS: Red Cell Distribution Width 24.2 % (11.8-14.3)
[2024-05-16 07:33] LABS: BUN/Creatinine Ratio 7.5 (10.0-20.0); Blood Urea Nitrogen < 5 mg/dL (9-23)
[2024-05-16 08:06] LABS: Platelet Estimate Decreased
[2024-05-16 08:07] LABS: Anisocytosis Slight
[2024-05-16 08:30] VITALS: PULSE 63; PULSE 70; RESP 16
[2024-05-16 09:00] VITALS: BP 129/63; PULSE 67; RESP 16; TEMP 98.7; O2SAT 100
[2024-05-16] MEDS: POTASSIUM CHL 20 Meq TABLET PO ONE (10:01)
[2024-05-16 11:54] VITALS: BP 139/59; PULSE 71; RESP 16; TEMP 98.7; O2SAT 100
[2024-05-16 14:31] VITALS: TEMP 98.5
[2024-05-16] MEDS ORDERED: HYDR-4902 PO (15:09)
[2024-05-16] MEDS ORDERED: AUG875T PO (15:09)
[2024-05-16] MEDS ORDERED: ACET300T58 PO (15:42)
== END 2024-05-16 16:30 | disposition home health service (06) | DRG 519 ==
LOC: ER 14:03 → EDBD 14:03 → TELE 18:14 → TELE-WESTW 22:52 → DOU IN ICU 05-08 09:15 → ICU WEST 05-08 17:18 → TELE-EAST 05-11 13:09
PROVIDERS: ADMIT Internal Medicine; ATTEND Internal Medicine
PROC: 30233N1 Transfusion of Nonautologous Red Blood Cells into Peripheral Vein, Percutaneous Approach (ICD-10-PCS; 2024-05-07)
PROC: 02HV33Z Insertion of Infusion Device into Superior Vena Cava, Percutaneous Approach (ICD-10-PCS; 2024-05-08)
PROC: B548ZZA Ultrasonography of Superior Vena Cava, Guidance (ICD-10-PCS; 2024-05-08)
PROC: 05HF33Z Insertion of Infusion Device into Left Cephalic Vein, Percutaneous Approach (ICD-10-PCS; 2024-05-08)
PROC: B54NZZA Ultrasonography of Left Upper Extremity Veins, Guidance (ICD-10-PCS; 2024-05-08)
PROC: 5A1945Z Respiratory Ventilation, 24-96 Consecutive Hours (ICD-10-PCS; 2024-05-09)
PROC: 0BH17EZ Insertion of Endotracheal Airway into Trachea, Via Natural or Artificial Opening (ICD-10-PCS; 2024-05-09)
PROC: 0B9D8ZX Drainage of Right Middle Lung Lobe, Via Natural or Artificial Opening Endoscopic, Diagnostic (ICD-10-PCS; 2024-05-09)
PROC: 30233K1 Transfusion of Nonautologous Frozen Plasma into Peripheral Vein, Percutaneous Approach (ICD-10-PCS; 2024-05-09)
PROC: 30233R1 Transfusion of Nonautologous Platelets into Peripheral Vein, Percutaneous Approach (ICD-10-PCS; 2024-05-09)
PROC: 0UT90ZZ Resection of Uterus, Open Approach (ICD-10-PCS; 2024-05-09)
PROC: 0TJB8ZZ Inspection of Bladder, Via Natural or Artificial Opening Endoscopic (ICD-10-PCS; 2024-05-09)
PROC: 0UB70ZZ Excision of Bilateral Fallopian Tubes, Open Approach (ICD-10-PCS; 2024-05-09)
PROC: 0UB00ZZ Excision of Right Ovary, Open Approach (ICD-10-PCS; principal; 2024-05-09 13:25)
PROC: 0UNF0ZZ Release Cul-de-sac, Open Approach (ICD-10-PCS; 2024-05-09 13:25)
DX: D25.0 Submucous leiomyoma of uterus (principal); J96.00 Acute respiratory failure, unspecified whether with hypoxia or hypercapnia; R57.1 Hypovolemic shock; E87.21 Acute metabolic acidosis; E87.20 Acidosis, unspecified; D69.6 Thrombocytopenia, unspecified; D62 Acute posthemorrhagic anemia; N17.9 Acute kidney failure, unspecified; N92.0 Excessive and frequent menstruation with regular cycle; E66.9 Obesity, unspecified; E87.6 Hypokalemia; N39.0 Urinary tract infection, site not specified; Z68.31 Body mass index [BMI] 31.0-31.9, adult; F10.10 Alcohol abuse, uncomplicated; Y90.9 Presence of alcohol in blood, level not specified; Z30.2 Encounter for sterilization
CPT/HCPCS: 36415; 36430; 36600; 71045; 76700; 76856; 80048; 80053; 81001; 82805; 82962; 83010; 83036; 83605; 83615; 83735; 83880; 84132; 84484; 84702; 85007; 85014; 85018; 85025; 85027; 85045; 85362; 85379; 85384; 85610; 85730; 86703; 86850; 86880; 86900; 86901; 86920; 87040; 87045; 87070; 87075; 87077; 87081; 87086; 87186; 87205; 87427; 87493; 92610; 93005; 93970; 94002; 94003; 94640; 97110; 97116; 97163; 97530; 99291; G0378; J1885; J1956; J2250; J2405; J3480; J3490; P9047

== ENCOUNTER 2024-05-17 10:28 | Inpatient (IN) | payer MEDICAID ==
[~2024-05-17] VITALS: Ht 165.1 cm; Wt 86.3 kg
[~2024-05-17 10:28] MED LIST: ACET300T58 PO; AUG875T PO
[2024-05-17 10:41] VITALS: PULSE 60; O2SAT 98
[2024-05-17] MEDS: ONDANSETRON HCL 4 MG/2 ML VIAL ONE (11:14)
[2024-05-17] MEDS: SODIUM CHLORIDE 0.9% 1,000 ML IV ONE (11:15)
[2024-05-17 11:50] LABS: Basophils # (auto) 0 10 ^3/uL (0-0.2); Basophils % (auto) 0.1 % (0.0-2.0); Eosinophils # (auto) 0 10 ^3/uL (0-0.8); Hematocrit 32.9 % (36.0-46.0); Hemoglobin 10.1 g/dL (12.2-16.2); Lymphocytes # (auto) 1.7 10 ^3/uL (0.4-5.4); Lymphocytes % (auto) 9.9 % (10.0-50.0); Mean Corpuscular Hemoglobin 27.1 pg (28.0-32.0); Mean Corpuscular Hgb Conc. 30.6 g/dL (32.0-36.0); Mean Corpuscular Volume 88.5 fL (80.0-100.0); Monocytes # (auto) 0.7 10 ^3/uL (0-1.3); Monocytes % (auto) 3.9 % (0.0-12.0); Neutrophils % (auto) 86.1 % (37.0-80.0); Nucleated Red Blood Cells % 0.1 %; Red Blood Cells 3.71 10^6/uL (4.0-5.20); White Blood Cell 17.4 10^3/uL (4.4-10.8)
[2024-05-17 11:53] LABS: Red Cell Distribution Width 24.8 % (11.8-14.3)
[2024-05-17 12:16] LABS: Alanine Aminotransferase 26 U/L (7-40); Albumin 3.4 g/dL (3.2-4.8); Alkaline Phosphatase 66 U/L (46-116); Anion Gap 12 (5-15); Aspartate Aminotransferase 29 U/L (13-40); Bilirubin, Total 0.8 mg/dL (0.2-1.0); Calcium 9.3 mg/dL (8.7-10.4); Carbon Dioxide 22 mmol/L (20-30); Chloride 108 mmol/L (98-107); Glucose 73 mg/dL (74-106); Lipase 113 U/L (12-53); Potassium 3.6 mmol/L (3.5-5.1); Sodium 142 mmol/L (136-145)
[2024-05-17 12:21] LABS: BUN/Creatinine Ratio 7.1 (10.0-20.0); Blood Urea Nitrogen < 5 mg/dL (9-23)
[2024-05-17] MEDS: fentaNYL CITRATE 100 MCG/2 ML VL IV ONE ×2 (12:30→12:32)
[2024-05-17] MEDS: PIPERACILLIN-TAZOB 3.375GM 100 ML IV ONE (12:37)
[2024-05-17 13:24] LABS: Urine Bacteria FEW /hpf (None Seen); Urine Blood Negative /uL (Negative); Urine Clarity Turbid (Clear); Urine Color Light-Yellow (Yellow); Urine Mucus FEW (None Seen); Urine Protein, UAD Negative (Negative); Urine Specific Gravity 1.016 (1.001-1.035); Urine Urobilinogen Normal (Negative); Urine WBC 1 /hpf (0 - 5); Urine pH 7.5 (5.0-9.0)
[2024-05-17] MEDS: METOCLOPRAMIDE HCL 5MG/ml INJ 2ml VIAL IV ONE (13:54)
[2024-05-17] MEDS ORDERED: NITROGLYCERIN 0.4 MG SL TAB SL PRN (15:30)
[2024-05-17] MEDS ORDERED: hydrALAZINE HCL 20 MG/ML VL IV PRN (15:45)
[2024-05-17] MEDS: MORPHINE SULFATE INJ 2 MG/ml SYRG IV PRN ×2 (15:51→16:57)
[2024-05-17] MEDS: ONDANSETRON HCL 4 MG/2 ML VIAL IV PRN (15:52)
[2024-05-17] MEDS: cefTRIAXone 1GM/50ML D5W 50 ML IV SCH (15:52)
[2024-05-17] MEDS ORDERED: PROCHLORPERAZINE EDISYLATE 5 MG/ML 2ML VIAL IV PRN (16:30)
[2024-05-17 16:45] VITALS: BP 138/69; PULSE 66; RESP 17; TEMP 97.6; O2SAT 100
[2024-05-17 17:26] VITALS: PULSE 60; RESP 20; O2SAT 100
[2024-05-17] MEDS: METOCLOPRAMIDE HCL 5MG/ml INJ 2ml VIAL IV SCH (18:12)
[2024-05-17] MEDS: HYDROcodone-ACET 5/325MG TAB PO PRN (18:47)
[2024-05-17 20:00] VITALS: PULSE 68; RESP 16
[2024-05-17 21:00] VITALS: BP 122/77; PULSE 63; RESP 18; TEMP 97.8; O2SAT 100
[2024-05-17] MEDS: SUCRALFATE 1 GM/10 ML ORAL SUSP GT SCH (22:42)
[2024-05-17] MEDS: metroNIDAZOLE 500MG/100ML 100 ML IV SCH (22:43)
[2024-05-17] MEDS: FAMOTIDINE 20 MG TAB PO SCH (22:43)
[2024-05-18] VITALS (8 sets, daily range): BP systolic 114–155; BP diastolic 51–71; PULSE 53–66; RESP 15–19; TEMP 98–98.9; O2SAT 96–100
[2024-05-18 06:35] LABS: Basophils # (auto) 0 10 ^3/uL (0-0.2); Basophils % (auto) 0.4 % (0.0-2.0); Eosinophils # (auto) 0 10 ^3/uL (0-0.8); Eosinophils % (auto) 0.4 % (0.0-7.0); Hematocrit 26.9 % (36.0-46.0); Hemoglobin 8.8 g/dL (12.2-16.2); Lymphocytes # (auto) 3.1 10 ^3/uL (0.4-5.4); Lymphocytes % (auto) 28.4 % (10.0-50.0); Mean Corpuscular Hemoglobin 27.2 pg (28.0-32.0); Mean Corpuscular Hgb Conc. 32.8 g/dL (32.0-36.0); Mean Corpuscular Volume 82.8 fL (80.0-100.0); Monocytes # (auto) 0.8 10 ^3/uL (0-1.3); Monocytes % (auto) 7.3 % (0.0-12.0); Neutrophils % (auto) 63.5 % (37.0-80.0); Nucleated Red Blood Cells % 0.1 %; Red Blood Cells 3.25 10^6/uL (4.0-5.20)
[2024-05-18 06:53] LABS: Red Cell Distribution Width 24.1 % (11.8-14.3)
[2024-05-18 06:56] LABS: Alanine Aminotransferase 19 U/L (7-40); Albumin 2.9 g/dL (3.2-4.8); Alkaline Phosphatase 56 U/L (46-116); Anion Gap 12 (5-15); Aspartate Aminotransferase 16 U/L (13-40); Bilirubin, Total 0.6 mg/dL (0.2-1.0); Calcium 8.8 mg/dL (8.7-10.4); Carbon Dioxide 23 mmol/L (20-30); Chloride 105 mmol/L (98-107); Glucose 68 mg/dL (74-106); Lipase 100 U/L (12-53); Sodium 140 mmol/L (136-145)
[2024-05-18 07:00] LABS: BUN/Creatinine Ratio 6.8 (10.0-20.0); Blood Urea Nitrogen < 5 mg/dL (9-23)
[2024-05-18 08:00] LABS: Anisocytosis Slight
[2024-05-18 08:01] LABS: Large Platelets FEW; Platelet Estimate Decreased; Stomatocytes Few
[2024-05-18] MEDS: SODIUM CHLORIDE 0.9% 1,000 ML IV SCH (17:39)
[2024-05-18] MEDS: KETOROLAC TROMETH 30 MG/ML 1ML VIAL IV ONE (17:39)
[2024-05-19] MEDS: KETOROLAC TROMETH 30 MG/ML 1ML VIAL IV PRN (00:41)
[2024-05-19 05:00] VITALS: BP 109/79; PULSE 77; RESP 20; TEMP 98.3; O2SAT 100
[2024-05-19 06:42] LABS: Basophils # (auto) 0 10 ^3/uL (0-0.2); Basophils % (auto) 0.3 % (0.0-2.0); Eosinophils # (auto) 0.1 10 ^3/uL (0-0.8); Eosinophils % (auto) 0.7 % (0.0-7.0); Hematocrit 27.2 % (36.0-46.0); Lymphocytes # (auto) 2.1 10 ^3/uL (0.4-5.4); Lymphocytes % (auto) 19.3 % (10.0-50.0); Mean Corpuscular Hemoglobin 27.6 pg (28.0-32.0); Mean Corpuscular Volume 83.5 fL (80.0-100.0); Monocytes # (auto) 0.8 10 ^3/uL (0-1.3); Monocytes % (auto) 7.5 % (0.0-12.0); Neutrophils % (auto) 72.2 % (37.0-80.0); Red Blood Cells 3.25 10^6/uL (4.0-5.20); Red Cell Distribution Width 24.1 % (11.8-14.3)
[2024-05-19 07:04] LABS: Alanine Aminotransferase 18 U/L (7-40); Albumin 2.8 g/dL (3.2-4.8); Alkaline Phosphatase 55 U/L (46-116); Anion Gap 11 (5-15); Aspartate Aminotransferase 16 U/L (13-40); Bilirubin, Total 0.6 mg/dL (0.2-1.0); Calcium 8.9 mg/dL (8.7-10.4); Carbon Dioxide 23 mmol/L (20-30); Chloride 106 mmol/L (98-107); Glucose 96 mg/dL (74-106); Lipase 118 U/L (12-53); Potassium 3.2 mmol/L (3.5-5.1); Sodium 140 mmol/L (136-145); Total Protein 5.9 g/dL (5.7-8.2)
[2024-05-19 07:20] LABS: BUN/Creatinine Ratio 5.7 (10.0-20.0); Blood Urea Nitrogen < 5 mg/dL (9-23)
[2024-05-19 08:41] VITALS: BP 149/55; PULSE 65; RESP 14; TEMP 98.1; O2SAT 97
[2024-05-19 12:59] VITALS: BP 152/74; PULSE 60; RESP 14; TEMP 98.2; O2SAT 100
[2024-05-19] MEDS: POTASSIUM EFFERVESENT TAB 25 MEQ PO ONE (15:26)
[2024-05-19] MEDS ORDERED: METR-344 PO (15:39)
[2024-05-19] MEDS ORDERED: HYDR-4902 PO (15:39)
[2024-05-19] MEDS ORDERED: ZOFR4T PO (15:43)
[2024-05-19 17:00] VITALS: BP 156/84; PULSE 59; RESP 18; TEMP 98.8; O2SAT 99
[2024-05-19 21:00] VITALS: BP 149/80; PULSE 62; RESP 22; TEMP 98.4; O2SAT 99
[2024-05-20] VITALS (7 sets, daily range): BP systolic 138–149; BP diastolic 59–76; PULSE 60–77; RESP 16–22; TEMP 97.8–98.7; O2SAT 94–100
[2024-05-20] MEDS: PROCHLORPERAZINE EDISYLATE 5 MG/ML 2ML VIAL IV PRN (02:53)
[2024-05-20] MEDS: PANTOPRAZOLE 40 MG TAB PO SCH (05:30)
[2024-05-20 05:50] LABS: Alanine Aminotransferase 15 U/L (7-40); Albumin 2.9 g/dL (3.2-4.8); Alkaline Phosphatase 55 U/L (46-116); Anion Gap 12 (5-15); Aspartate Aminotransferase 13 U/L (13-40); Bilirubin, Total 0.7 mg/dL (0.2-1.0); Calcium 8.8 mg/dL (8.7-10.4); Carbon Dioxide 24 mmol/L (20-30); Chloride 105 mmol/L (98-107); Glucose 76 mg/dL (74-106); Lipase 68 U/L (12-53); Sodium 141 mmol/L (136-145); Total Protein 6.1 g/dL (5.7-8.2)
[2024-05-20 06:04] LABS: BUN/Creatinine Ratio 7.4 (10.0-20.0); Blood Urea Nitrogen < 5 mg/dL (9-23)
[2024-05-20] MEDS: POTASSIUM CHLORIDE 40 MEQ, LIDOCAINE 1% (LOCAL ANESTH.) 4 ML in SODIUM CHL 0.9% 250 ML IV ONE (10:40)
[2024-05-20] MEDS: D5W/SOD CHL 0.45%/KCL 20MEQ 1,000 ML IV SCH (18:17)
[2024-05-20] MEDS: SUCRALFATE 1 GM/10 ML ORAL SUSP PO SCH (22:12)
[2024-05-21 01:00] VITALS: BP 115/59; PULSE 78; RESP 18; TEMP 98.4; O2SAT 99
[2024-05-21 05:00] VITALS: BP 110/62; PULSE 76; RESP 18; TEMP 98.1; O2SAT 96
[2024-05-21 06:00] LABS: Basophils # (auto) 0 10 ^3/uL (0-0.2); Basophils % (auto) 0.3 % (0.0-2.0); Eosinophils # (auto) 0 10 ^3/uL (0-0.8); Eosinophils % (auto) 0.6 % (0.0-7.0); Hematocrit 26.6 % (36.0-46.0); Hemoglobin 8.9 g/dL (12.2-16.2); Lymphocytes # (auto) 2.3 10 ^3/uL (0.4-5.4); Lymphocytes % (auto) 28.5 % (10.0-50.0); Mean Corpuscular Hemoglobin 28.1 pg (28.0-32.0); Mean Corpuscular Hgb Conc. 33.7 g/dL (32.0-36.0); Mean Corpuscular Volume 83.5 fL (80.0-100.0); Monocytes # (auto) 0.8 10 ^3/uL (0-1.3); Monocytes % (auto) 9.8 % (0.0-12.0); Neutrophils # (auto) 4.8 10 ^3/uL (1.6-8.6); Neutrophils % (auto) 60.8 % (37.0-80.0); Nucleated Red Blood Cells % 0.1 %; Red Blood Cells 3.18 10^6/uL (4.0-5.20)
[2024-05-21 06:02] LABS: Red Cell Distribution Width 24.2 % (11.8-14.3)
[2024-05-21 06:17] LABS: Alanine Aminotransferase 12 U/L (7-40); Albumin 2.8 g/dL (3.2-4.8); Alkaline Phosphatase 53 U/L (46-116); Anion Gap 8 (5-15); Aspartate Aminotransferase 13 U/L (13-40); Bilirubin, Total 0.6 mg/dL (0.2-1.0); Calcium 8.8 mg/dL (8.7-10.4); Carbon Dioxide 24 mmol/L (20-30); Chloride 108 mmol/L (98-107); Glucose 82 mg/dL (74-106); Potassium 3.2 mmol/L (3.5-5.1); Sodium 140 mmol/L (136-145); Total Protein 5.8 g/dL (5.7-8.2)
[2024-05-21 06:23] LABS: Blood Urea Nitrogen < 5 mg/dL (9-23)
[2024-05-21 06:35] LABS: Lipase 98 U/L (12-53)
[2024-05-21 07:26] LABS: Anisocytosis Moderate; Platelet Estimate Adequate
[2024-05-21] MEDS: HYDROmorphone HCL 2 MG/ML VL/or syr IV ONE ×2 (11:13→15:45)
[2024-05-21 13:00] VITALS: BP 126/76; PULSE 65; RESP 16; TEMP 98.2; O2SAT 97
[2024-05-21 17:00] VITALS: BP 146/77; PULSE 74; RESP 18; TEMP 98.3; O2SAT 96
[2024-05-21 17:29] VITALS: TEMP 36.8
== END 2024-05-21 17:48 | disposition home or self-care (01) | DRG 246 ==
LOC: ER 10:28 → EDBD 10:28 → OVERFLOW 15:34 → WEST WING 16:33
PROVIDERS: ADMIT Hospitalist; ATTEND Hospitalist
DX: K55.9 Vascular disorder of intestine, unspecified (principal); K85.90 Acute pancreatitis without necrosis or infection, unspecified; D69.6 Thrombocytopenia, unspecified; E86.0 Dehydration; E66.9 Obesity, unspecified; K80.20 Calculus of gallbladder without cholecystitis without obstruction; E87.6 Hypokalemia; K29.70 Gastritis, unspecified, without bleeding; N93.9 Abnormal uterine and vaginal bleeding, unspecified; F17.200 Nicotine dependence, unspecified, uncomplicated; Z90.710 Acquired absence of both cervix and uterus; Z90.721 Acquired absence of ovaries, unilateral; Y84.8 Other medical procedures as the cause of abnormal reaction of the patient, or of later complication, without mention of misadventure at the time of the procedure; Y92.89 Other specified places as the place of occurrence of the external cause; Z68.28 Body mass index [BMI] 28.0-28.9, adult
CPT/HCPCS: 36415; 74176; 78226; 80053; 81001; 83605; 83690; 84484; 85025; 86850; 86900; 86901; 87081; 93005; 93306; 99291; G0378; J1885; J2001; J2405; J2543; J3490

== ENCOUNTER 2024-06-28 01:03 | Inpatient (IN) | payer MEDICAID ==
[~2024-06-28] VITALS: Ht 167.6 cm; Wt 84.0 kg
[~2024-06-28 01:03] MED LIST changes: -ACET300T58 PO; +HYDR-4902 PO; +METR-344 PO; +ZOFR4T PO
[2024-06-28 01:41] LABS: Basophils # (auto) 0 10 ^3/uL (0-0.2); Basophils % (auto) 0.8 % (0.0-2.0); Eosinophils # (auto) 0.1 10 ^3/uL (0-0.8); Eosinophils % (auto) 2.4 % (0.0-7.0); Hematocrit 32.2 % (36.0-46.0); Hemoglobin 10.4 g/dL (12.2-16.2); Lymphocytes % (auto) 37.3 % (10.0-50.0); Mean Corpuscular Hemoglobin 27.1 pg (28.0-32.0); Mean Corpuscular Hgb Conc. 32.2 g/dL (32.0-36.0); Mean Corpuscular Volume 84.2 fL (80.0-100.0); Monocytes # (auto) 0.5 10 ^3/uL (0-1.3); Monocytes % (auto) 9.2 % (0.0-12.0); Neutrophils # (auto) 2.7 10 ^3/uL (1.6-8.6); Neutrophils % (auto) 50.3 % (37.0-80.0); Nucleated Red Blood Cells % 0.1 %; Platelet Count (auto) 208 10^3/uL (140-450); Red Blood Cells 3.82 10^6/uL (4.0-5.20); Red Cell Distribution Width 20.4 % (11.8-14.3); White Blood Cell 5.4 10^3/uL (4.4-10.8)
[2024-06-28 01:50] LABS: Alanine Aminotransferase 84 U/L (7-40); Albumin 3.4 g/dL (3.2-4.8); Alkaline Phosphatase 103 U/L (46-116); Anion Gap 7 (5-15); Aspartate Aminotransferase 130 U/L (13-40); BUN/Creatinine Ratio 7.9 (10.0-20.0); Bilirubin, Total 0.6 mg/dL (0.2-1.0); Blood Urea Nitrogen 6 mg/dL (9-23); Calcium 8.6 mg/dL (8.7-10.4); Carbon Dioxide 24 mmol/L (20-30); Chloride 106 mmol/L (98-107); Glucose 92 mg/dL (74-106); Lipase 38 U/L (12-53); Sodium 137 mmol/L (136-145); Total Protein 7.6 g/dL (5.7-8.2)
[2024-06-28 02:02] LABS: Anisocytosis Slight; Platelet Estimate Adequate; Stomatocytes Few
[2024-06-28] MEDS: ONDANSETRON HCL 4 MG/2 ML VIAL IV ONE ×3 (03:45→13:04)
[2024-06-28] MEDS: HYDROmorphone HCL 2 MG/ML VL/or syr IV ONE (03:46)
[2024-06-28] MEDS: POTASSIUM CHL 20 Meq TABLET PO ONE (05:04)
[2024-06-28] MEDS ORDERED: HYDR-4798 PO (05:07)
[2024-06-28] MEDS: fentaNYL CITRATE 100 MCG/2 ML VL IV ONE (05:25)
[2024-06-28] MEDS: MORPHINE SULFATE 4 MG/ML SYR/VIAL IV ONE (13:03)
[2024-06-28 13:23] LABS: Urine Bacteria FEW /hpf (None Seen); Urine Blood Negative /uL (Negative); Urine Color Light-Orange (Yellow); Urine Mucus MODERATE (None Seen); Urine Protein, UAD 1+ (Negative); Urine Specific Gravity 1.034 (1.001-1.035); Urine Urobilinogen Normal (Negative); Urine WBC 16 /hpf (0 - 5); Urine pH 5.5 (5.0-9.0)
[2024-06-28 13:24] LABS: Amphetamine Screen, Urine Neg (NEGATIVE)
[2024-06-28 13:25] LABS: Barbiturate Scree,Urine Neg (NEGATIVE); Benzodiazephine Screen, Urine Neg (NEGATIVE); Cannabinoid Screen, Urine Pos (NEGATIVE); Cocaine Screen, Urine Neg (NEGATIVE); Opiate Scree,Urine Neg (NEGATIVE); Phencyclidine Screen, Urine Neg (NEGATIVE)
[2024-06-28 13:28] LABS: Urine Clarity Cloudy (Clear)
[2024-06-28] MEDS ORDERED: NITROGLYCERIN 0.4 MG SL TAB SL PRN (18:15)
[2024-06-28] MEDS ORDERED: ONDANSETRON HCL 4 MG/2 ML VIAL IV PRN (18:15)
[2024-06-28] MEDS ORDERED: MORPHINE SULFATE INJ 2 MG/ml SYRG IV PRN (18:15)
[2024-06-28] MEDS ORDERED: hydrALAZINE HCL 20 MG/ML VL IV PRN (18:15)
[2024-06-29] VITALS (9 sets, daily range): BP systolic 117–151; BP diastolic 57–88; PULSE 65–86; RESP 17–20; TEMP 97.5–98.2; O2SAT 93–100
[2024-06-29] MEDS: FAMOTIDINE (10MG/ML) 2ML VL IV SCH (01:55)
[2024-06-29] MEDS: POTASSIUM CHL 20 Meq TABLET PO ONE (01:55)
[2024-06-29] MEDS: cefTRIAXone 1GM/50ML D5W 50 ML IV SCH (02:09)
[2024-06-29] MEDS: SOD CHL 0.45% WITH 20MEQ KCL 1,000 ML IV SCH ×2 (02:32→14:33)
[2024-06-29] MEDS: MAGNESIUM SULFATE 1GM/100ML 100 ML IV SCH (03:03)
[2024-06-29] MEDS: MORPHINE SULFATE 4 MG/ML SYR/VIAL IV PRN (03:04)
[2024-06-29] MEDS: MAGNESIUM SULFATE 1GM/100ML 200 ML IV ONE (03:17)
[2024-06-29] MEDS: ENOXAPARIN SOD 40 MG/0.4 ML SYRINGE SC SCH (08:50)
[2024-06-29 08:55] LABS: Basophils # (auto) 0 10 ^3/uL (0-0.2); Basophils % (auto) 0.9 % (0.0-2.0); Eosinophils # (auto) 0.1 10 ^3/uL (0-0.8); Eosinophils % (auto) 2.6 % (0.0-7.0); Lymphocytes # (auto) 1.2 10 ^3/uL (0.4-5.4); Lymphocytes % (auto) 28.7 % (10.0-50.0); Mean Corpuscular Hemoglobin 27.1 pg (28.0-32.0); Mean Corpuscular Hgb Conc. 31.5 g/dL (32.0-36.0); Mean Corpuscular Volume 86.2 fL (80.0-100.0); Monocytes # (auto) 0.3 10 ^3/uL (0-1.3); Monocytes % (auto) 7.8 % (0.0-12.0); Neutrophils # (auto) 2.4 10 ^3/uL (1.6-8.6); Platelet Count (auto) 162 10^3/uL (140-450); Red Blood Cells 4.06 10^6/uL (4.0-5.20); White Blood Cell 4.1 10^3/uL (4.4-10.8)
[2024-06-29 09:08] LABS: INR 1.06 (0.9-1.15); Partial Thromboplastin Time < 20.0 SEC (24.5-34.5); Prothrombin Time 11.2 sec (9.3-11.8)
[2024-06-29 09:12] LABS: Alanine Aminotransferase 66 U/L (7-40); Albumin 2.9 g/dL (3.2-4.8); Alkaline Phosphatase 92 U/L (46-116); Anion Gap 7 (5-15); Aspartate Aminotransferase 69 U/L (13-40); Calcium 8.9 mg/dL (8.7-10.4); Carbon Dioxide 23 mmol/L (20-30); Chloride 106 mmol/L (98-107); Glucose 96 mg/dL (74-106); Magnesium 2.1 mg/dL (1.6-2.6); Potassium 3.9 mmol/L (3.5-5.1); Sodium 136 mmol/L (136-145)
[2024-06-29 09:13] LABS: BUN/Creatinine Ratio 7.1 (10.0-20.0); Bilirubin, Total 0.7 mg/dL (0.2-1.0); Blood Urea Nitrogen < 5 mg/dL (9-23); Total Protein 6.9 g/dL (5.7-8.2)
[2024-06-29 09:50] LABS: Lipase 35 U/L (12-53)
[2024-06-29] MEDS: MORPHINE SULFATE INJ 2 MG/ml SYRG IV PRN (12:56)
[2024-06-29] MEDS: NYSTATIN TOPICAL POWDER 15GM TOP SCH (14:00)
[2024-06-29] MEDS: DOXYCYCLINE 100 MG TAB/CAP PO SCH (21:32)
[2024-06-29] MEDS: metroNIDAZOLE 500 MG TAB PO SCH (21:32)
[2024-06-30 01:00] VITALS: BP 108/60; PULSE 72; RESP 18; TEMP 98.2; O2SAT 98
[2024-06-30 05:00] VITALS: BP 101/56; PULSE 71; RESP 18; TEMP 98; O2SAT 98
[2024-06-30 07:16] LABS: Basophils # (auto) 0 10 ^3/uL (0-0.2); Lymphocytes # (auto) 1.3 10 ^3/uL (0.4-5.4); Monocytes # (auto) 0.4 10 ^3/uL (0-1.3); White Blood Cell 3.9 10^3/uL (4.4-10.8)
[2024-06-30 07:19] LABS: Basophils % (auto) 0.7 % (0.0-2.0); Eosinophils # (auto) 0.2 10 ^3/uL (0-0.8); Eosinophils % (auto) 4.2 % (0.0-7.0); Hematocrit 31.1 % (36.0-46.0); Lymphocytes % (auto) 32.9 % (10.0-50.0); Mean Corpuscular Hemoglobin 26.7 pg (28.0-32.0); Mean Corpuscular Volume 83.4 fL (80.0-100.0); Monocytes % (auto) 9.4 % (0.0-12.0); Neutrophils # (auto) 2.1 10 ^3/uL (1.6-8.6); Neutrophils % (auto) 52.8 % (37.0-80.0); Nucleated Red Blood Cells % 0.2 %; Platelet Count (auto) 201 10^3/uL (140-450); Red Blood Cells 3.73 10^6/uL (4.0-5.20); Red Cell Distribution Width 19.7 % (11.8-14.3)
[2024-06-30 07:24] LABS: Alanine Aminotransferase 46 U/L (7-40); Albumin 2.9 g/dL (3.2-4.8); Alkaline Phosphatase 85 U/L (46-116); Anion Gap 6 (5-15); Aspartate Aminotransferase 46 U/L (13-40); Bilirubin, Total 0.4 mg/dL (0.2-1.0); Calcium 8.7 mg/dL (8.7-10.4); Carbon Dioxide 24 mmol/L (20-30); Chloride 107 mmol/L (98-107); Glucose 89 mg/dL (74-106); Potassium 3.7 mmol/L (3.5-5.1); Sodium 137 mmol/L (136-145); Total Protein 6.4 g/dL (5.7-8.2)
[2024-06-30 07:29] LABS: BUN/Creatinine Ratio 7.1 (10.0-20.0); Blood Urea Nitrogen < 5 mg/dL (9-23)
[2024-06-30 08:00] VITALS: PULSE 67
[2024-06-30 09:00] VITALS: BP 106/65; PULSE 71; RESP 18; TEMP 98.1; O2SAT 99
[2024-06-30 13:00] VITALS: BP 137/75; PULSE 68; RESP 18; TEMP 98.5; O2SAT 100
[2024-06-30] MEDS ORDERED: DOXY100C79 PO (13:20)
[2024-06-30] MEDS ORDERED: ACE3T PO (13:20)
[2024-06-30] MEDS ORDERED: PANT40T PO (13:20)
[2024-07-02 13:18] LABS: Hepatitis B Core Total AB Negative (Negative)
[2024-07-02 16:41] LABS: Hepatitis A Total Antibody Positive (Negative); Hepatitis B Surface Antibody Negative (Negative); Hepatitis B Surface Antigen Negative (Negative); Hepatitis C Antibody Negative (Negative)
== END 2024-06-30 14:30 | disposition home or self-care (01) ==
LOC: EDUNIT# 01:03 → ER 01:03 → EDBD 01:03 → TELE 18:07 → TELE-WESTW 06-29 06:13
PROVIDERS: ADMIT Hospitalist; ATTEND Hospitalist
DX: K80.20 Calculus of gallbladder without cholecystitis without obstruction (principal); K76.0 Fatty (change of) liver, not elsewhere classified; D64.9 Anemia, unspecified; E87.6 Hypokalemia; N72 Inflammatory disease of cervix uteri; R74.01 Elevation of levels of liver transaminase levels; F17.200 Nicotine dependence, unspecified, uncomplicated; K21.9 Gastro-esophageal reflux disease without esophagitis; Z90.711 Acquired absence of uterus with remaining cervical stump; Z90.721 Acquired absence of ovaries, unilateral
CPT/HCPCS: 36415; 74176; 76705; 76856; 80053; 80307; 80320; 81001; 83690; 83735; 84702; 85025; 85610; 85730; 86704; 86706; 86708; 86803; 87086; 87340; G0378; J2405; J3490

== ENCOUNTER 2024-08-25 20:53 | Inpatient (IN) | payer MEDICAID ==
[~2024-08-25] VITALS: Ht 165.1 cm; Wt 81.8 kg
[~2024-08-25 20:53] MED LIST changes: +ACE3T PO; -AUG875T PO; +DOXY100C79 PO; -HYDR-4902 PO; +PANT40T PO
--- NOTE | 2024-08-25 21:04 | ED.PDOC ---
General HPI Comments A 39 year old female brought in by EMS presents to the ED with the chief complaint of abdominal pain, nausea and vomiting. Patient states she is experiencing epigastric pain that radiates to her back RT side as well as nausea and vomiting. She experienced similar symptoms when she had gallstones. No other symptoms or modifying factors present at this time. Chief Complaint: Abdominal Pain Time Seen by MD: 20:56 Primary Care Provider: UNKNOWN Reviewed notes: Medications, Allergies Allergies: Coded Allergies: No Known Drug Allergy (Verified Allergy, Unknown, 05/07/24) Home Meds Active Scripts Acetaminophen W/ Codeine (Tylenol W/Cod #3) 1 Tab Tb, 1 TAB PO Q6HPRN PRN, #14 TAB Prov:BALJEET MARVIN MD 06/30/24 Doxycycline (Monohydrate) (Doxycycline) 100 Mg Cap, 100 MG PO BID, #14 CAP Prov:BALJEET MARVIN MD 06/30/24 Pantoprazole Sodium Sesquihydr (Pantoprazole Sodium) 40 Mg Tab, 40 MG PO DAILY, #30 TAB Prov:BALJEET MARVIN MD 06/30/24 Ondansetron Odt 4MG Tab (ZOFRAN PO) 4 Mg Tb, 4 MG PO Q6HPRN PRN, #10 TAB ODT TAB-DISSOLVE IN MOUTH, THEN SWALLOW Prov:BALJEET MARVIN MD 05/19/24 Metronidazole (Flagyl) 500 Mg Tab, 1 TAB PO BID, #10 TAB Prov:BALJEET MARVIN MD 05/19/24 Information Source: Patient, Emergency Med Personnel Mode of Arrival: EMS Severity: Moderate Timing: Hours Duration: Since onset Prehospital treatment: None Location: Abdomen associated signs and symptoms: Abdominal Pain, Nausea, Vomiting, Back Pain Past Medical History PAST MEDICAL HISTORY: Anemia, Gallstones 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 Family History Family History: Reviewed,noncontributory to illness Social History Smoker: Other Alcohol: Occasionally Drugs: Denies Drug Use Lives In: Home Constitutional: denies: chills, diaphoresis, fatigue, fever, malaise, sweats, weakness, others EENTM: denies: blurred vision, double vision, ear bleeding, ear discharge, ear drainage, ear pain, ear ringing, eye pain, eye redness, hearing loss, mouth pain, mouth swelling, nasal discharge, nose bleeding, nose congestion, nose pain, photophobia, tearing, throat pain, throat swelling, voice changes, others Respiratory: denies: cough, hemoptysis, orthopnea, SOB at rest, shortness of breath, SOB with excertion, stridor, wheezing, others Cardiovascular: denies: chest pain, dizzy spells, diaphoresis, Dyspnea on exertion, edema, irregular heart beat, left arm pain, lightheadedness, palpita tions, PND, syncope, others Gastrointestinal: reports: abdominal pain, nausea, vomiting; denies: abdomen distended, blood streaked bowels, constipated, diarrhea, dysphagia, difficulty swallowing, hematemesis, melena, poor appetite, poor fluid intake, rectal bleeding, rectal pain, others Genitourinary: denies: abnormal vagina bleeding, burning, dyspareunia, dysuria, flank pain, frequency, hematuria, incontinence, pain, , vagina discharge, urgency, others Neurological: denies: dizziness, fainting, headache, left sided numbness, left sided weakness, numbness, paresthesia, pre-existing deficit, right sided numbness, right sided weakness, seizure, speech problems, tingling, tremors, weakness, others Musculoskeletal: reports: back pain; denies: gout, joint pain, joint swelling, muscle pain, muscle stiffness, neck pain, others Integumetry: denies: bruises, change in color, change in hair/nails, dryness, laceration, lesions, lumps, rash, wounds, others Allergic/Immunocompromised: denies: Difficulty Healing, Frequent Infections, Hives, Itching, others Endocrine: denies: excessive hunger, excessive sweating, excessive thirst, excessive urination, flushing, intolerance to cold, intolerance to heat, unexplained weight gain, unexplained weight loss, others Psychiatric: denies: anxiety, bipolar disorder, depression, hopeless, panic disorder, schizophrenia, sleepless, suicidal, others All Other Systems: Reviewed and Negative Physical Exam General Appearance: No Apparent Distress, Normal HEENT: Normal ENT Inspection, Pharynx Normal, TMs Normal Neck: Full Range of Motion, Non-Tender, Normal, Normal Inspection Respiratory: Chest Non-Tender, Lungs Clear, No Accessory Muscle Use, No Respiratory Distress, Normal Breath Sounds Cardiovascular: No Edema, No JVD, No Murmur, No Gallop, Normal Peripheral Pulses, Regular Rate/Rhythm Breast Exam: Deferred Gastrointestinal: Epigastric (tenderness), No Organomegaly, Non Tender, No Pulsatile Mass, Normal Bowel Sounds, Soft, Tenderness (epigastric) Genitalia: Deferred Pelvic: Deferred Rectal: Deferred Extremities: No calf tenderness, Normal capillary refill, Normal inspection, Normal range of motion, Non-tender, No pedal edema Musculoskeletal : Apperance: Normal Neurologic: 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 Was a procedure done?: No Differential Diagnosis Kidney stone (Female): N/A Kidney stone (Male): N/A Penile/Scrotal: N/A Urinary Problem (Male): N/A Urinary Problem (Female): Appendicitis, Pyelonephritis, Urinary retention, Other (Gallstones) X-Ray, Labs, Meds, VS Vital Signs Date Time Temp Pulse Resp B/P (MAP) Pulse Ox O2 Delivery O2 Flow Rate FiO2 08/26/24 01:07 12 126/69 (88) 100 08/26/24 01:02 79 12 126/69 08/26/24 00:12 90 20 143/93 08/25/24 22:11 97.6 71 12 117/60 (79) 100 97.6 08/25/24 22:07 71 12 117/60 08/25/24 21:39 90 20 147/78 08/25/24 21:38 90 20 96 Room Air* 0 21 08/25/24 21:38 98.4 90 20 147/78 (101) 96 98.4 08/25/24 20:55 97.8 60 22 145/81 (102) 98 Lab Test 08/25/24 21:46 Range/Units White Blood Count 8.3 4.4-10.8 10^3/uL Red Blood Count 4.86 4.0-5.20 10^6/uL Hemoglobin 12.2 12.2-16.2 g/dL Hematocrit 38.8 36.0-46.0 % Mean Corpuscular Volume 79.8 L 80.0-100.0 fL Mean Corpuscular Hemoglobin 25.2 L 28.0-32.0 pg Mean Corpuscular Hemoglobin Concent 31.6 L 32.0-36.0 g/dL Red Cell Distribution Width 22.9 H 11.8-14.3 % Platelet Count 298 140-450 10^3/uL Mean Platelet Volume 9.3 6.9-10.8 fL Neutrophils (%) (Auto) 83.7 H 37.0-80.0 % Lymphocytes (%) (Auto) 11.8 10.0-50.0 % Monocytes (%) (Auto) 4.2 0.0-12.0 % Eosinophils (%) (Auto) 0.0 0.0-7.0 % Basophils (%) (Auto) 0.3 0.0-2.0 % Neutrophils # (Auto) 7.0 1.6-8.6 10 ^3/uL Lymphocytes # (Auto) 1.0 0.4-5.4 10 ^3/uL Monocytes # (Auto) 0.4 0-1.3 10 ^3/uL Eosinophils # (Auto) 0 0-0.8 10 ^3/uL Basophils # (Auto) 0 0-0.2 10 ^3/uL Nucleated Red Blood Cells 0.2 % Sodium Level 137 136-145 mmol/L Potassium Level 3.3 L 3.5-5.1 mmol/L Chloride Level 104 98-107 mmol/L Carbon Dioxide Level 21 20-31 mmol/L Anion Gap 12 5-15 Blood Urea Nitrogen 7 L 9-23 mg/dL Creatinine 1.00 0.550-1.02 mg/dL Glomerular Filtration Rate Calc 74 >90 mL/min BUN/Creatinine Ratio 7.0 L 10.0-20.0 Serum Glucose 124 H 74-106 mg/dL Calcium Level 9.4 8.7-10.4 mg/dL Total Bilirubin 1.1 H 0.2-1.0 mg/dL Aspartate Amino Transferase (AST) 85 H 13-40 U/L Alanine Aminotransferase (ALT) 50 H 7-40 U/L Alkaline Phosphatase 125 H 46-116 U/L Total Protein 8.1 5.7-8.2 g/dL Albumin 3.8 3.2-4.8 g/dL Lipase 47 12-53 U/L Current Medications Medications (Trade) Dose Ordered Sig/Sruthi Route Start Time Stop Time Status Last Admin Sodium Chloride 1,000 ml @ 1,000 mls/hr Q1H ONCE IV 08/25/24 21:00 08/25/24 21:59 DC 08/25/24 21:28 Ondansetron HCl (Zofran) 4 mg ONCE ONCE IV 08/25/24 21:00 08/25/24 21:01 DC 08/25/24 21:39 Morphine Sulfate 4 mg ONCE ONCE IV 08/25/24 21:00 08/25/24 21:01 DC 08/25/24 21:39 Famotidine (Pepcid Injection) 20 mg ONCE ONCE IV 08/25/24 21:00 08/25/24 21:01 DC 08/25/24 21:39 Morphine Sulfate 4 mg ONCE ONCE IV 08/25/24 23:45 08/25/24 23:47 DC 08/26/24 00:12 Ondansetron HCl (Zofran) 4 mg ONCE ONCE IV 08/25/24 23:45 08/25/24 23:47 DC 08/26/24 00:13 [place] [address] Ph: [phone] DIAGNOSTIC IMAGING Diagnostic Imaging Report : [id number] Signed PATIENT: MENA LANDRUM ACCT: [id number] UNIT: [id number] : 1985 LOC: ER ROOM / BED: / AGE / SEX: 39 / F ADM STATUS: REG ER SERVICE 56 ORDERING PHYSICIAN: PINEDA SHEARER MD PROCEDURE(s): GBUS - GALLBLADDER REASON: ruq pain ORDER NUMBER(s): [id number], ACCESSION NUMBER(s): [id number] INDICATION: Pain. TECHNIQUE: Multiple real-time sonographic images of the abdomen were obtained. COMPARISON: US GALLBLADDER on DOS: 06/28/24 FINDINGS: Increased echogenicity to the hepatic parenchyma suggesting steatosis.. The liver measures 16.84 cm. No intrahepatic biliary ductal dilata tion is noted. The gallbladder wall measures 0 .18 cm and is unremarkable. Mobile cholelithiasis. The common duct measures 0.54 cm and is unremarkable. No pericholecystic fluid is noted. Negative ultrasound Villa's sign. The right kidney measures 9.78 cm. No hydronephrosis. The pancreas is not well visualized due to obscuration from bowel gas. IMPRESSION: 1. Normal exam of the abdomen. ATED BY: JACOBY ZAMBRANO Jr., DO DICTATED DATE/TIME: 08/25/242225 SIGNED BY: JACOBY ZAMBRANO Jr., SIGNED DATE/TIME: 08/25/242225 CC: Time of 1ST Reevaluation: 21:26 Reevaluation 1ST: Unchanged Patient Education/Counseling: Diagnosis, Treatment, Prognosis Family Education/Counseling: No Family Present Departure 1 Departure Time of Disposition: 01:54 (Patient presented with abdominal pain that was concerning for possible appendicits, gastritis, cholecystitis, colitis, gastroenteritis, sbo, or orther possible surgical emergency. Data: 1. I ordered and reviewed the result of at least 3 labs including a CBC, BMP, and Urinalysis. 2. I independently interpreted the following tests: CT Abdoment and Pelvis is concerning for cholecystitis .Risk:This patient has a high risk of morbidity due to further diagnostic testing or treatment and may suffer from an acute abdominal process disorder. Workup reveals concern for cholecystitis and radiology recommends a HIDA scan. and patient should be admitted for further workup. and possible expert consultation. ) Impression: Primary Impression: Right upper quadrant pain Additional Impressions: Projectile vomiting with nausea Gallstones Disposition: ADMITTED INPATIENT Admit to: Med Surg Condition: Serious Critical Care Note Critical Care Time?: Yes Critical care comment: Intractable abdominal pain Authorized and Performed by: Pineda Shearer MD Total critical care time: Approximately 41 minutes Due to a high probability of clinically significant, life threatening deterioration, the patient required my highest level of preparedness to intervene emergently and I personally spent this critical care time directly and personally managing the patient. This critical care time included obtaining a history; examining the patient; pulse oximetry; ordering and review of studies; arranging urgent treatment with development of a management plan; evaluation of patient's response to treatment; frequent reassessment; and, discussions with other providers. This critical care time was performed to assess and manage the high probability of imminent, life-threatening deterioration that could result in multi-organ failure. It was exclusive of separately billable procedures and treating other patients and teaching time. Please see my other sections and the rest of the note for further information on patient assessment and treatment. Stability Stability form required: No I personally scribed for PINEDA SHEARER MD ([email or web address]) on 08/25/24 at 21:04. Electronically submitted by Joelle Ramirez ([email or web address]). I personally scribed for PINEDA SHEARER MD ([email or web address]) on 08/25/24 at 22:36. Electronically submitted by Joelle Ramirez ([email or web address]). I personally scribed for PINEDA SHEARER MD ([email or web address]) on 08/26/24 at 00:21. Electronically submitted by Joelle Ramirez ([email or web address]). PINEDA SHEARER MD Aug 25, 2024 21:04
[2024-08-25] MEDS: SODIUM CHLORIDE 0.9% 1,000 ML IV ONE (21:28)
[2024-08-25 21:38] VITALS: PULSE 90; RESP 20; O2SAT 96
[2024-08-25] MEDS: FAMOTIDINE (10MG/ML) 2ML VL IV ONE (21:39)
[2024-08-25] MEDS: ONDANSETRON HCL 4 MG/2 ML VIAL IV ONE (21:39)
[2024-08-25] MEDS: MORPHINE SULFATE 4 MG/ML SYR/VIAL IV ONE (21:39)
[2024-08-25 21:58] LABS: Basophils # (auto) 0 10 ^3/uL (0-0.2); Basophils % (auto) 0.3 % (0.0-2.0); Eosinophils # (auto) 0 10 ^3/uL (0-0.8); Hematocrit 38.8 % (36.0-46.0); Hemoglobin 12.2 g/dL (12.2-16.2); Monocytes # (auto) 0.4 10 ^3/uL (0-1.3)
[2024-08-25 22:00] LABS: Lymphocytes % (auto) 11.8 % (10.0-50.0); Mean Corpuscular Hemoglobin 25.2 pg (28.0-32.0); Mean Corpuscular Hgb Conc. 31.6 g/dL (32.0-36.0); Mean Corpuscular Volume 79.8 fL (80.0-100.0); Monocytes % (auto) 4.2 % (0.0-12.0); Neutrophils % (auto) 83.7 % (37.0-80.0); Nucleated Red Blood Cells % 0.2 %; Platelet Count (auto) 298 10^3/uL (140-450); Red Blood Cells 4.86 10^6/uL (4.0-5.20); Red Cell Distribution Width 22.9 % (11.8-14.3); White Blood Cell 8.3 10^3/uL (4.4-10.8)
[2024-08-25 22:13] LABS: Alanine Aminotransferase 50 U/L (7-40); Albumin 3.8 g/dL (3.2-4.8); Alkaline Phosphatase 125 U/L (46-116); Anion Gap 12 (5-15); Aspartate Aminotransferase 85 U/L (13-40); Bilirubin, Total 1.1 mg/dL (0.2-1.0); Blood Urea Nitrogen 7 mg/dL (9-23); Calcium 9.4 mg/dL (8.7-10.4); Carbon Dioxide 21 mmol/L (20-31); Chloride 104 mmol/L (98-107); Glucose 124 mg/dL (74-106); Lipase 47 U/L (12-53); Potassium 3.3 mmol/L (3.5-5.1); Sodium 137 mmol/L (136-145); Total Protein 8.1 g/dL (5.7-8.2)
--- NOTE | 2024-08-25 22:29 | DVH ---
INDICATION: Pain. TECHNIQUE: Multiple real-time sonographic images of the abdomen were obtained. COMPARISON: US GALLBLADDER on DOS: 06/28/24 FINDINGS: Increased echogenicity to the hepatic parenchyma suggesting steatosis.. The liver measures 16.84 cm. No intrahepatic biliary ductal dilatation is noted. The gallbladder wall measures 0 .18 cm and is unremarkable. Mobile cholelithiasis. The common duct measures 0.54 cm and is unremarkable. No pericholecystic fluid is noted. Negative ultrasound Villa 's sign. The right kidney measures 9.78 cm. No hydronephrosis. The pancreas is not well visualized due to obscuration from bowel gas. IMPRESSION: 1. Normal exam of the abdomen.
[2024-08-26] MEDS: MORPHINE SULFATE 4 MG/ML SYR/VIAL IV ONE ×2 (00:12→02:32)
[2024-08-26] MEDS: ONDANSETRON HCL 4 MG/2 ML VIAL IV ONE ×2 (00:13→02:32)
[2024-08-26] MEDS: IOHEXOL 300 MG/ML 100ML BOTTLE IJ ONE (00:37)
--- NOTE | 2024-08-26 01:50 | DVH ---
Exam: CT CT AB PEL WITH IV CON ONLY History: ruq abdominal pain Comparison Study: None available at time of dictation. Technique: Multidetector spiral CT of the abdomen and pelvis was performed from lung bases to pubic s ymphysis. Intravenous contrast was administered during this examination. Portal venous imaging was obtained. Axial, coronal and sagittal multiplanar reformats were performed by the technologist on a separate workstation. Radiation Dose : 1. Abdomen/Pelvis: CTDIvol 20 mGy, DLP 1218 mGy*cm. Findings: Lung Bases: No acute or significant lung base finding. Normal heart size. No pleural or pericardial effusion. Liver: The liver is normal in size. No focal lesions. Normal hepatic vascular enhancement. Hepatic s teatosis. Gallbladder and Biliary Tree: Distended gallbladder and dilated common bile duct measuring 7 mm. Spleen: Unremarkable Pancreas: The pancreas is normal in appearance without focal lesions or abnormal enhancement. Adrenal Glands: Unremarkable Kidneys: Kidneys demonstrate normal symmetric enhancement without focal lesions, calculi or hydroneph rosis. Bladder: Unremarkable Bowel: The stomach is grossly normal in appearance. Small bowel and colon are normal in caliber and d istribution. Normal appendix is visualized in the right lower quadrant without findings of appendici tis. Ascites: Absent Lymphadenopathy: No mesenteric, retroperitoneal or periportal lymphadenopathy. Abdominal Wall and Mesentery: Unremarkable. Vasculature: The visualized abdominal aorta is normal in size and caliber. Abdominal and pelvic vess els demonstrate normal enhancement. Pelvic Organs: Hysterectomy. There is a 4.7 cm hypodensity arising from the left adnexa. Musculoskeletal: No aggressive focal bony lesions, acute fractures or dislocation. IMPRESSION: Distended gallbladder and dilated common bile duct measuring up to 7 mm. Findings are concerning for possible biliary obstruction. Consider further evaluation with ultrasound or HIDA scan. Status post hysterectomy with the 4.7 cm hypodensity in the left adnexa. This can be further evaluate d with pelvic ultrasound if clinically indicated.
[2024-08-26] MEDS ORDERED: ACETAMINOPHEN 325 MG TAB PO PRN (02:30)
[2024-08-26 03:31] LABS: Basophils # (auto) 0 10 ^3/uL (0-0.2); Eosinophils # (auto) 0 10 ^3/uL (0-0.8); Lymphocytes # (auto) 0.6 10 ^3/uL (0.4-5.4); Monocytes # (auto) 0.3 10 ^3/uL (0-1.3)
[2024-08-26 03:32] LABS: Basophils % (auto) 0.3 % (0.0-2.0); Hematocrit 38.1 % (36.0-46.0); Hemoglobin 11.9 g/dL (12.2-16.2); Mean Corpuscular Hemoglobin 25.3 pg (28.0-32.0); Mean Corpuscular Hgb Conc. 31.4 g/dL (32.0-36.0); Mean Corpuscular Volume 80.7 fL (80.0-100.0); Monocytes % (auto) 2.9 % (0.0-12.0); Neutrophils # (auto) 8.1 10 ^3/uL (1.6-8.6); Neutrophils % (auto) 89.8 % (37.0-80.0); Nucleated Red Blood Cells % 0.1 %; Platelet Count (auto) 275 10^3/uL (140-450); Red Blood Cells 4.72 10^6/uL (4.0-5.20); Red Cell Distribution Width 22.8 % (11.8-14.3)
--- NOTE | 2024-08-26 03:33 | DVHHP2 ---
Admitting Diagnosis: Cholecystitis, abdominal pain History of Present Illness History Source: Patient Exam Limitations: No limitations HPI Mrs. Mj Sun is a 39 year old female with a history of gallstones, hysterectomy who presents with a chief complaint of abdominal pain, nausea and vomiting. Patient states she is experiencing epigastric pain that radiates to her back RT side as well as nausea and vomiting. She experienced similar symptoms when she had gallstones. Patient CT abdomen and pelvis with IV contrast resulted : Distended gallbladder and dilated common bile duct measuring up to 7 mm. Findings are concerning for possible biliary obstruction. Consider further evaluation with ultrasound or HIDA scan. Status post hysterectomy with the 4.7 cm hypodensity in the left adnexa. This can be further evaluated with pelvic ultrasound if clinically indicated. Patient Total bilirubin 1.1, AST 85, ALT 50, ALP 125. Patient denies, constipation, nausea, vomiting, diarrhea. Patient admitted for further evaluation. Home Meds Active Scripts Acetaminophen W/ Codeine (Tylenol W/Cod #3) 1 Tab Tb, 1 TAB PO Q6HPRN PRN, #14 TAB Prov:BALJEET MARVIN MD 06/30/24 Doxycycline (Monohydrate) (Doxycycline) 100 Mg Cap, 100 MG PO BID, #14 CAP Prov:BALJEET MARVIN MD 06/30/24 Pantoprazole Sodium Sesquihydr (Pantoprazole Sodium) 40 Mg Tab, 40 MG PO DAILY, #30 TAB Prov:BALJEET MARVIN MD 06/30/24 Ondansetron Odt 4MG Tab (ZOFRAN PO) 4 Mg Tb, 4 MG PO Q6HPRN PRN, #10 TAB ODT TAB-DISSOLVE IN MOUTH, THEN SWALLOW Prov:BALJEET MARVIN MD 05/19/24 Metronidazole (Flagyl) 500 Mg Tab, 1 TAB PO BID, #10 TAB Prov:BALJEET MARVIN MD 05/19/24 Past Medical History Cardiac: No pertinent Hx Pulmonary: No pertinent Hx Central Nervous System: No pertinent Hx GI: No pertinent Hx Hemotology/Oncology: No pertinent Hx Hepatobiliary: No pertinent Hx Psychiatric: No pertinent Hx Musculoskeletal: No pertinent Hx Rheumotologic: No pertinent Hx Infectious Disease: No peritnent Hx ENT: No pertinent Hx Renal/: No pertinent Hx Endocrine: No pertinent Hx Dermatology: No pertinent Hx Others gallstones Past Surgical History: Hysterctomy Patient Family History: Patient reports no known family medical history. Smoker: No Hx (Negative) Alocohol: None Drugs: None Lives with: With family Domestic Violence: Neg Review of Systems Constitutional: No symptom reported Ears, Nose, & Throat: No symptom reported Eyes: No symptom reported Pulmonary/Respiratory: No symptom reported Cardiovascular: No symptom reported Gastrointestinal: Abdominal Pain Genitourinary: No symptom reported Musculoskeletal: No symptom reported Skin: No symptom reported Psychiatric: No symptom reported Endocrine: No symptom reported Hemotologic/Lymphatic: No symptom reported H&P Exam Vital Signs Vital Signs Date Time Temp Pulse Resp B/P (MAP) Pulse Ox O2 Delivery O2 Flow Rate FiO2 08/26/24 03:02 64 16 137/72 08/26/24 02:08 95 08/25/24 22:11 97.6 97.6 08/25/24 21:38 Room Air* 0 21 General Appeara: Well developed, Well nourished, Normal Appearance Head Exam: Normal inspection Neck Exam: Normal inspection, Non-tender, Normal alignment Eye Exam: bilateral eye Normal inspection, bilateral eye PERRL, bilateral eye EOMI Ear Exam: bilateral ear Auricle normal Nasal Exam: Normal inspection Mouth: Normal Inspection Pulmonary/Respiratory: Normal inspection, Normal breath sounds, Chest non- tender, Lungs clear Cardiovascular/Chest: Normal inspection, Regular rate, Normal Rhythm Peripheral Pulses: 2+ dorsalis pedis (R), 2+ dorsalis pedis (L), 2+ Radial (R), 2+ Radial (L) Abdominal Exam: Normal bowel sounds, Soft, No tenderness 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 hearing, Normal speech, PERRL Neuro/Mental St: Alert, Oriented Appearance: Appropriate appearance, Appropriate insight Eye contact/ Speech: Cooperative, Good eye contact, Normal speech Thoughts/Psych: Normal thought pattern Skin Exam: Normal inspection, Normal color, Warm/dry Labs/Xrays Labs Test 08/25/24 21:46 Range/Units White Blood Count 8.3 4.4-10.8 10^3/uL Red Blood Count 4.86 4.0-5.20 10^6/uL Hemoglobin 12.2 12.2-16.2 g/dL Hematocrit 38.8 36.0-46.0 % Mean Corpuscular Volume 79.8 L 80.0-100.0 fL Mean Corpuscular Hemoglobin 25.2 L 28.0-32.0 pg Mean Corpuscular Hemoglobin Concent 31.6 L 32.0-36.0 g/dL Red Cell Distribution Width 22.9 H 11.8-14.3 % Platelet Count 298 140-450 10^3/uL Mean Platelet Volume 9.3 6.9-10.8 fL Neutrophils (%) (Auto) 83.7 H 37.0-80.0 % Lymphocytes (%) (Auto) 11.8 10.0-50.0 % Monocytes (%) (Auto) 4.2 0.0-12.0 % Eosinophils (%) (Auto) 0.0 0.0-7.0 % Basophils (%) (Auto) 0.3 0.0-2.0 % Neutrophils # (Auto) 7.0 1.6-8.6 10 ^3/uL Lymphocytes # (Auto) 1.0 0.4-5.4 10 ^3/uL Monocytes # (Auto) 0.4 0-1.3 10 ^3/uL Eosinophils # (Auto) 0 0-0.8 10 ^3/uL Basophils # (Auto) 0 0-0.2 10 ^3/uL Nucleated Red Blood Cells 0.2 % Sodium Level 137 136-145 mmol/L Potassium Level 3.3 L 3.5-5.1 mmol/L Chloride Level 104 98-107 mmol/L Carbon Dioxide Level 21 20-31 mmol/L Anion Gap 12 5-15 Blood Urea Nitrogen 7 L 9-23 mg/dL Creatinine 1.00 0.550-1.02 mg/dL Glomerular Filtration Rate Calc 74 >90 mL/min BUN/Creatinine Ratio 7.0 L 10.0-20.0 Serum Glucose 124 H 74-106 mg/dL Calcium Level 9.4 8.7-10.4 mg/dL Total Bilirubin 1.1 H 0.2-1.0 mg/dL Aspartate Amino Transferase (AST) 85 H 13-40 U/L Alanine Aminotransferase (ALT) 50 H 7-40 U/L Alkaline Phosphatase 125 H 46-116 U/L Total Protein 8.1 5.7-8.2 g/dL Albumin 3.8 3.2-4.8 g/dL Lipase 47 12-53 U/L Assessment/Plan Problem List: (1) Cholecystitis (2) Abdominal pain Plan 39 yo female with known history of gallstones, hysterectomy presents to the hospital with epigastric pain, right abdominal pain, nausea, vomiting. Patient found to have 1. acute cholecystitis 2. Transaminitis 3. elevated bilirubin 4. Dilated CBD Admit Med Surg General surgeon consultation Gastroenterology consultation IV fluids NS Lactic level, monitor CBC, CMP MRCP NPO Discussed all above with patient who verbalizes agreement and understanding of care plan. All questions were answered. Discussed assessment and care plan with supervising MD. Plan discussed with: Patient, Other Code Visit Code Visit Total Time (mins): 45 Additional Comments Additional Comments Additional Comments Patient is seen and evaluated by nurse practitioner. Patient's seen and chart is reviewed. I agree with nurse practitioner's evaluation, documentation, assessment and care plan as outlined. KAMLESH RAWLS Aug 26, 2024 03:33 BALJEET MARVIN MD Aug 26, 2024 15:42
[2024-08-26 03:46] LABS: Alanine Aminotransferase 45 U/L (7-40); Albumin 3.7 g/dL (3.2-4.8); Alkaline Phosphatase 118 U/L (46-116); Anion Gap 10 (5-15); Aspartate Aminotransferase 66 U/L (13-40); Bilirubin, Total 0.8 mg/dL (0.2-1.0); Calcium 9.5 mg/dL (8.7-10.4); Carbon Dioxide 23 mmol/L (20-31); Chloride 105 mmol/L (98-107); Glucose 107 mg/dL (74-106); Potassium 3.5 mmol/L (3.5-5.1); Sodium 138 mmol/L (136-145); Total Protein 7.9 g/dL (5.7-8.2)
[2024-08-26 03:49] LABS: Blood Urea Nitrogen < 5 mg/dL (9-23)
[2024-08-26 04:28] LABS: INR 1.08 (0.9-1.15); Prothrombin Time 11.4 sec (9.3-11.8)
[2024-08-26 04:30] VITALS: BP 135/81; PULSE 59; RESP 19; TEMP 97.7; O2SAT 100
[2024-08-26] MEDS: SODIUM CHLORIDE 0.9% 1,000 ML IV SCH (05:00)
[2024-08-26] MEDS: ONDANSETRON HCL 4 MG/2 ML VIAL IV PRN ×2 (06:51→10:56)
[2024-08-26] MEDS: MORPHINE SULFATE INJ 2 MG/ml SYRG IV PRN (06:52)
[2024-08-26 08:30] VITALS: BP 113/68; PULSE 60; RESP 16; TEMP 97.4; O2SAT 95; O2SAT 98
[2024-08-26] MEDS: PANTOPRAZOLE 40 MG/10 ML VIAL INJ IV SCH (09:00)
--- NOTE | 2024-08-26 10:37 | DVH ---
[id number] MRI MRCP MRI Attending Name: PINEDA SHEARER COMPARISON: CT scan of the abdomen and pelvis dated 08/26/2024, gallbladder sonogram dated 08/25/2024 INDICATION: obstructed common bile duct , distended gallbldder TECHNIQUE: MRI of the abdomen and MRCP was performed without the use of intravenous contrast using a MRI imaging system . Three-dimensional MRCP was performed using maximum intensity projection reconstruction on an [facility] ent workstation under concurrent supervision. FINDINGS: Moderately distended gallbladder containing numerous multifaceted calculi measuring up to 1.1 cm. No gallbladder wall thickening. The common bile duct is dilated measuring up to 0.8 cm in caliber. No c holedocholithiasis noted. No distal obstructive lesion. No ampullary mass identified. No discrete p ancreatic head lesion. The pancreatic duct is normal in caliber. Edema noted surrounding the pancre atic head and the adjacent duodenal extending to the gallbladder fossa. There is hepatomegaly and hep atic steatosis. A 1.2 cm thick-walled T2 hyperintense lesion noted in the left hepatic lobe, segment IV that is incompletely evaluated in the current exam. This appeared hypodense, hypoenhancing in the recent CT scan was not identified in the ultrasound. Few subcentimeter T2 hyperintense lesions in th e left hepatic lobe, segment II and III that are too small to characterize but probably cysts or bili lisy hamartomas. Moderate-size elongated filling defect in the IVC extending from the bifurcation to the level of the origin of renal veins. Caudally, is seems to extend to the bilateral the bilateral common iliac arter ies and possibly to the femoral veins. The spleen, adrenal glands and kidneys unremarkable. Visualized bowel are grossly unremarkable. Parti ally seen at least 3.5 cm left adnexal cysts. Base of the lungs are clear. No acute osseous or soft tissue abnormality. Mild rightward curvature of the thoracic spine. IMPRESSION: 1. Partially occlusive DVT involving infrarenal IVC, possibly the bilateral iliac and femoral arterie s. Further evaluation with venous Doppler of the bilateral lower extremities is recommended. 2. Moderate fat stranding adjacent to the pancreatic head , and duodenum extending to the gallbladder fossa this could be secondary to venous thrombosis or reflect pancreatitis. No evidence of duodenit is. Cholelithiasis is unlikely as no significant gallbladder wall edema is present . Recommend clini chapito and biochemical correlation . Visualized cystic duct appears patent in this study. Further evalua tion with HIDA scan could be completed if clinically warranted . 3. Mildly dilated CBD, 0.8 cm in caliber without choledocholithiasis. 4. Moderately distended gallbladder and cholelithiasis. 5. Hepatomegaly and hepatic steatosis. 6. Several T2 hyperintense foci in the left hepatic lobe mostly subcentimeter with the largest measur ing 1.2 cm. This was not identified in the prior ultrasound and vaguely seen as hypodense, hypoenhanc ing lesion in the accompanying CT scan. Recommend follow-up by MRI without and with IV contrast utili zing a dedicated hepatic protocol in 3-6 months. AIDE August was notified of findings on 08/26/2024 on 10:30 a.m , who will immediately notify the clini cash in charge of the patient.
[2024-08-26] MEDS: ENOXAPARIN SOD 40 MG/0.4 ML SYRINGE SC SCH (10:56)
--- NOTE | 2024-08-26 12:11 | DVH ---
Bilateral lower extremity venous duplex Clinical History: abnormal findings in MRCP/MRI suggesting DVT in thrombus Comparison: US BILAT LOWER DVT on DOS: 05/13/24 Technique: Duplex Doppler evaluation of the deep venous systems of both lower extremities from the common femora l veins to the popliteal veins including color Doppler and spectral/pulsed waveform analysis was perf ormed. Findings: RIGHT SIDE: The common femoral vein demonstrates appropriate compressibility and waveform variability. There is compressibility/patency of the great saphenous vein at the proximal thigh. The femoral vein demonstrates appropriate compressibility and waveform variability. The deep femoral vein demonstrates appropriate compressibility and waveform variability. The popliteal vein demonstrates appropriate compressibility and waveform variability. There is color flow at the tibioperoneal trunk and in the posterior tibial vein. LEFT SIDE: The common femoral vein demonstrates appropriate compressibility and waveform variability. There is compressibility/patency of the great saphenous vein at the proximal thigh. The femoral vein demonstrates appropriate compressibility and waveform variability. The deep femoral vein demonstrates appropriate compressibility and waveform variability. The popliteal vein demonstrates appropriate compressibility and waveform variability. There is color flow at the tibioperoneal trunk and in the posterior tibial vein. Impression: 1. No right or left femoropopliteal venous thrombosis.
--- NOTE | 2024-08-26 15:15 | DVHINCON2 ---
Date of service: Aug 26, 2024 Family History: Cervical cancer G8 MOTHER Allergies: Coded Allergies: No Known Drug Allergy (Verified Allergy, Unknown, 05/07/24) Home Meds Active Scripts Acetaminophen W/ Codeine (Tylenol W/Cod #3) 1 Tab Tb, 1 TAB PO Q6HPRN PRN, #14 TAB Prov:BALEJET MARVIN MD 06/30/24 Doxycycline (Monohydrate) (Doxycycline) 100 Mg Cap, 100 MG PO BID, #14 CAP Prov:BALJEET MARVIN MD 06/30/24 Pantoprazole Sodium Sesquihydr (Pantoprazole Sodium) 40 Mg Tab, 40 MG PO DAILY, #30 TAB Prov:BALJEET MARVIN MD 06/30/24 Ondansetron Odt 4MG Tab (ZOFRAN PO) 4 Mg Tb, 4 MG PO Q6HPRN PRN, #10 TAB ODT TAB-DISSOLVE IN MOUTH, THEN SWALLOW Prov:BALJEET MARVIN MD 05/19/24 Metronidazole (Flagyl) 500 Mg Tab, 1 TAB PO BID, #10 TAB Prov:BALJEET MARVIN MD 05/19/24 Current Medications Current Medications Medications (Trade) Dose Ordered Sig/Sruthi Route PRN Reason Start Time Stop Time Status Last Admin Ondansetron HCl (Zofran) 4 mg Q6HPRN PRN IV NAUSEA / VOMITING 08/26/24 02:30 08/26/24 10:17 DC 08/26/24 06:51 Morphine Sulfate 2 mg Q4HPRN PRN IV SEVERE PAIN (7-10 PAIN SCALE) 08/26/24 02:30 08/26/24 15:05 DC 08/26/24 11:04 Pantoprazole Sodium (Protonix) 40 mg DAILY IV 08/26/24 10:00 08/26/24 09:00 Acetaminophen/ Hydrocodone Bitart ([place] 5/325MG Tab) 1 tab Q6HPRN PRN PO PAIN SCALE 1 THRU 6 08/26/24 02:30 Acetaminophen (Tylenol Tablet) 650 mg Q6HPRN PRN PO TEMP GREATER THAN 100.4 08/26/24 02:30 Enoxaparin Sodium (Lovenox) 40 mg DAILY SC 08/26/24 10:00 08/26/24 10:56 Sodium Chloride 1,000 ml @ 100 mls/hr Q10H IV 08/26/24 03:30 08/26/24 05:00 Ondansetron HCl (Zofran) 4 mg Q4HP PRN IV NAUSEA / VOMITING 08/26/24 10:30 08/26/24 10:56 Hydromorphone HCl (Dilaudid Injection) 0.25 mg Q4HPRN PRN IV SEVERE PAIN (7-10 PAIN SCALE) 08/26/24 15:15 UNV Vital Signs Vital Signs Date Time Temp Pulse Resp B/P (MAP) Pulse Ox O2 Delivery O2 Flow Rate FiO2 08/26/24 11:34 60 16 111/65 08/26/24 08:30 95 Room Air* 0 21 08/26/24 08:30 97.4 97.4 Labs/Diagnostic Data Labs Test 08/26/24 03:03 08/25/24 21:46 Range/Units White Blood Count 9.0 4.4-10.8 10^3/uL Red Blood Count 4.72 4.0-5.20 10^6/uL Hemoglobin 11.9 L 12.2-16.2 g/dL Hematocrit 38.1 36.0-46.0 % Mean Corpuscular Volume 80.7 80.0-100.0 fL Mean Corpuscular Hemoglobin 25.3 L 28.0-32.0 pg Mean Corpuscular Hemoglobin Concent 31.4 L 32.0-36.0 g/dL Red Cell Distribution Width 22.8 H 11.8-14.3 % Platelet Count 275 140-450 10^3/uL Mean Platelet Volume 9.5 6.9-10.8 fL Neutrophils (%) (Auto) 89.8 H 37.0-80.0 % Lymphocytes (%) (Auto) 7.0 L 10.0-50.0 % Monocytes (%) (Auto) 2.9 0.0-12.0 % Eosinophils (%) (Auto) 0.0 0.0-7.0 % Basophils (%) (Auto) 0.3 0.0-2.0 % Neutrophils # (Auto) 8.1 1.6-8.6 10 ^3/uL Lymphocytes # (Auto) 0.6 0.4-5.4 10 ^3/uL Monocytes # (Auto) 0.3 0-1.3 10 ^3/uL Eosinophils # (Auto) 0 0-0.8 10 ^3/uL Basophils # (Auto) 0 0-0.2 10 ^3/uL Nucleated Red Blood Cells 0.1 % Prothrombin Time 11.4 9.3-11.8 sec Prothrombin Time INR 1.08 0.9-1.15 Sodium Level 138 136-145 mmol/L Potassium Level 3.5 3.5-5.1 mmol/L Chloride Level 105 98-107 mmol/L Carbon Dioxide Level 23 20-31 mmol/L Anion Gap 10 5-15 Blood Urea Nitrogen < 5 L 9-23 mg/dL Creatinine 0.84 0.550-1.02 mg/dL Glomerular Filtration Rate Calc 92 >90 mL/min BUN/Creatinine Ratio 6.0 L 10.0-20.0 Serum Glucose 107 H 74-106 mg/dL Lactic Acid Level 1.2 0.4-2.0 mmol/L Calcium Level 9.5 8.7-10.4 mg/dL Total Bilirubin 0.8 0.2-1.0 mg/dL Aspartate Amino Transferase (AST) 66 H 13-40 U/L Alanine Aminotransferase (ALT) 45 H 7-40 U/L Alkaline Phosphatase 118 H 46-116 U/L Total Protein 7.9 5.7-8.2 g/dL Albumin 3.7 3.2-4.8 g/dL Lipase 47 12-53 U/L Assessment [id number] DVT PARTIAL THROMBOSIS AFEBRILE VSS CHOLELITHIASIS R/O AC CHOLECYSTITIS HIDA SCAN TO DETERMINE THE NEED FOR SURGERY Plan discussed with: Patient BRYAN LEO MD Aug 26, 2024 15:15
[2024-08-26] MEDS: HYDROmorphone HCL 2 MG/ML VL/or syr IV PRN (15:34)
[2024-08-26 16:43] VITALS: BP 126/79; PULSE 58; RESP 16; TEMP 97.8; O2SAT 100
--- NOTE | 2024-08-26 20:24 | DVHINCON2 ---
Date of service: Aug 26, 2024 Referring Physician Inessa Fuller Reason for Consultation Abdominal pain History of Present Illness A 39 year old female brought in by EMS presents to the ED with the chief complaint of abdominal pain, nausea and vomiting. Patient states she is experiencing epigastric pain that radiates to her back RT side as well as nausea and vomiting. She experienced similar symptoms when she had gallstones. No other symptoms or modifying factors present at this time. Past Medical History Cholelithiasis Past Surgical History Hysterectomy Family History: Cervical cancer G8 MOTHER Allergies: Coded Allergies: No Known Drug Allergy (Verified Allergy, Unknown, 05/07/24) Home Meds Active Scripts Acetaminophen W/ Codeine (Tylenol W/Cod #3) 1 Tab Tb, 1 TAB PO Q6HPRN PRN, #14 TAB Prov:BALJEET MARVIN MD 06/30/24 Doxycycline (Monohydrate) (Doxycycline) 100 Mg Cap, 100 MG PO BID, #14 CAP Prov:BALJEET MARVIN MD 06/30/24 Pantoprazole Sodium Sesquihydr (Pantoprazole Sodium) 40 Mg Tab, 40 MG PO DAILY, #30 TAB Prov:BALJEET MARVIN MD 06/30/24 Ondansetron Odt 4MG Tab (ZOFRAN PO) 4 Mg Tb, 4 MG PO Q6HPRN PRN, #10 TAB ODT TAB-DISSOLVE IN MOUTH, THEN SWALLOW Prov:BALJEET MARVIN MD 05/19/24 Metronidazole (Flagyl) 500 Mg Tab, 1 TAB PO BID, #10 TAB Prov:BALJEET MARVIN MD 05/19/24 Current Medications Current Medications Medications (Trade) Dose Ordered Sig/Sruthi Route PRN Reason Start Time Stop Time Status Last Admin Ondansetron HCl (Zofran) 4 mg Q6HPRN PRN IV NAUSEA / VOMITING 08/26/24 02:30 08/26/24 10:17 DC 08/26/24 06:51 Morphine Sulfate 2 mg Q4HPRN PRN IV SEVERE PAIN (7-10 PAIN SCALE) 08/26/24 02:30 08/26/24 15:05 DC 08/26/24 11:04 Pantoprazole Sodium (Protonix) 40 mg DAILY IV 08/26/24 10:00 08/26/24 09:00 Acetaminophen/ Hydrocodone Bitart ([place] 5/325MG Tab) 1 tab Q6HPRN PRN PO PAIN SCALE 1 THRU 6 08/26/24 02:30 Acetaminophen (Tylenol Tablet) 650 mg Q6HPRN PRN PO TEMP GREATER THAN 100.4 08/26/24 02:30 Enoxaparin Sodium (Lovenox) 40 mg DAILY SC 08/26/24 10:00 08/26/24 10:56 Sodium Chloride 1,000 ml @ 100 mls/hr Q10H IV 08/26/24 03:30 08/26/24 19:56 Ondansetron HCl (Zofran) 4 mg Q4HP PRN IV NAUSEA / VOMITING 08/26/24 10:30 08/26/24 19:44 Hydromorphone HCl (Dilaudid Injection) 0.25 mg Q4HPRN PRN IV SEVERE PAIN (7-10 PAIN SCALE) 08/26/24 15:15 08/26/24 19:53 Vital Signs Vital Signs Date Time Temp Pulse Resp B/P (MAP) Pulse Ox O2 Delivery O2 Flow Rate FiO2 08/26/24 19:53 69 18 126/89 08/26/24 16:43 97.8 100 97.8 08/26/24 08:30 Room Air* 0 21 Physical Exam General Appearance: No Apparent Distress, Normal; sleeping HEENT: Normal ENT Inspection, Pharynx Normal, TMs Normal Respiratory: Chest Non-Tender, Lungs Clear, No Accessory Muscle Use, No Respiratory Distress, Normal Breath Sounds Cardiovascular: No Edema, No JVD, No Murmur, No Gallop, Normal Peripheral Pulses, Regular Rate/Rhythm Gastrointestinal: Epigastric (tenderness), No Organomegaly, Non Tender, No Pulsatile Mass, Normal Bowel Sounds, Soft, Tenderness (epigastric) Extremities: No calf tenderness, Normal capillary refill, Normal inspection, Normal range of motion, Non-tender, No pedal edema Labs/Diagnostic Data Labs Test 08/26/24 03:03 08/25/24 21:46 Range/Units White Blood Count 9.0 4.4-10.8 10^3/uL Red Blood Count 4.72 4.0-5.20 10^6/uL Hemoglobin 11.9 L 12.2-16.2 g/dL Hematocrit 38.1 36.0-46.0 % Mean Corpuscular Volume 80.7 80.0-100.0 fL Mean Corpuscular Hemoglobin 25.3 L 28.0-32.0 pg Mean Corpuscular Hemoglobin Concent 31.4 L 32.0-36.0 g/dL Red Cell Distribution Width 22.8 H 11.8-14.3 % Platelet Count 275 140-450 10^3/uL Mean Platelet Volume 9.5 6.9-10.8 fL Neutrophils (%) (Auto) 89.8 H 37.0-80.0 % Lymphocytes (%) (Auto) 7.0 L 10.0-50.0 % Monocytes (%) (Auto) 2.9 0.0-12.0 % Eosinophils (%) (Auto) 0.0 0.0-7.0 % Basophils (%) (Auto) 0.3 0.0-2.0 % Neutrophils # (Auto) 8.1 1.6-8.6 10 ^3/uL Lymphocytes # (Auto) 0.6 0.4-5.4 10 ^3/uL Monocytes # (Auto) 0.3 0-1.3 10 ^3/uL Eosinophils # (Auto) 0 0-0.8 10 ^3/uL Basophils # (Auto) 0 0-0.2 10 ^3/uL Nucleated Red Blood Cells 0.1 % Prothrombin Time 11.4 9.3-11.8 sec Prothrombin Time INR 1.08 0.9-1.15 Sodium Level 138 136-145 mmol/L Potassium Level 3.5 3.5-5.1 mmol/L Chloride Level 105 98-107 mmol/L Carbon Dioxide Level 23 20-31 mmol/L Anion Gap 10 5-15 Blood Urea Nitrogen < 5 L 9-23 mg/dL Creatinine 0.84 0.550-1.02 mg/dL Glomerular Filtration Rate Calc 92 >90 mL/min BUN/Creatinine Ratio 6.0 L 10.0-20.0 Serum Glucose 107 H 74-106 mg/dL Lactic Acid Level 1.2 0.4-2.0 mmol/L Calcium Level 9.5 8.7-10.4 mg/dL Total Bilirubin 0.8 0.2-1.0 mg/dL Aspartate Amino Transferase (AST) 66 H 13-40 U/L Alanine Aminotransferase (ALT) 45 H 7-40 U/L Alkaline Phosphatase 118 H 46-116 U/L Total Protein 7.9 5.7-8.2 g/dL Albumin 3.7 3.2-4.8 g/dL Lipase 47 12-53 U/L MRCP IMPRESSION: 1. 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 Further evaluation with venous Doppler of the bilateral lower extremities is recommended. 2. Moderate fat stranding adjacent to the pancreatic head , and duodenum extending to the gallbladder fossa this could be secondary to venous thrombosis or reflect pancreatitis. No evidence of duodenitis. Cholelithiasis is unlikely as no significant gallbladder wall edema is present . Recommend clinical and biochemical correlation . Visualized cystic duct appears patent in this study. Further evaluation with HIDA scan could be completed if clinically warranted . 3. Mildly dilated CBD, 0.8 cm in caliber without choledocholithiasis. 4. Moderately distended gallbladder and cholelithiasis. 5. Hepatomegaly and hepatic steatosis. 6. Several T2 hyperintense foci in the left hepatic lobe mostly subcentimeter with the largest measuring 1.2 cm. This was not identified in the prior ultrasound and vaguely seen as hypodense, hypoenhancing lesion in the accompanying CT scan. Recommend follow-up by MRI without and with IV contrast utilizing a dedicated hepatic protocol in 3-6 months. Doppler LE Impression: 1. No right or left femoropopliteal venous thrombosis. Problems(with codes): (1) Projectile vomiting with nausea (2) Cholecystitis (3) Abdominal pain (4) Right upper quadrant pain (5) Gallstones Plan/Recommendation Plan Monitor labs;Previous hepatitis panel is negative Lipase normal ; IV fluid hydration Patient has history of cholelithiasis possible cholecystitis HIDA scan was negative on last admission however at this time consider repeating HIDA scan to rule out acute cholecystitis Monitor labs, check ANNE Discontinue opiates and marijuana Possible vascular surgery evaluation for thrombus in IVC, may need IVC filter Plan discussed with: Patient, Other (Dr York) MALORIE LEO MD Aug 26, 2024 20:24
[2024-08-26 21:00] VITALS: BP 138/60; PULSE 54; RESP 15; TEMP 97.9; O2SAT 97
--- NOTE | 2024-08-26 23:02 | DVHINCON2 ---
DATE OF CONSULTATION: 08/26/2024 HISTORY OF PRESENT ILLNESS: This patient is 39 years old, coming in with right flank and back pain and she also had epigastric pain. She is describing nausea and vomiting as well. She has history of gallstones and recent Doppler study for her venous system also demonstrates no venous thrombosis. Gallbladder ultrasound shows cholelithiasis and MRCP was done that is suggesting a partially occlusive DVT involving infrarenal IVC that may be causing her pain and there also is some possibility of pancreatitis and no evidence of duodenitis and the cholelithiasis is also noticed, but does not have significant gallbladder wall inflammation and the CBD is mildly dilated, but with no CBD stone. PAST MEDICAL HISTORY: No diabetes. No hypertension. PAST SURGICAL HISTORY: Hysterectomy. PHYSICAL EXAMINATION: VITAL SIGNS: Afebrile, stable signs. HEENT: With no evidence of pallor, cyanosis, or jaundice. NECK: Supple, nontender with no thyromegaly or lymphadenopathy. CHEST AND LUNGS: Clear. HEART: Within normal limits. ABDOMEN: Soft, minimally tender in the right upper quadrant. No rebound. EXTREMITIES: Unremarkable. NEUROLOGIC: Intact. CLINICAL IMPRESSION: Rule out cholecystitis and partially occlusive DVT involving the infrarenal IVC and she also has possible pancreatitis and cholelithiasis. So my clinical impression is to rule out acute cholecystitis. PLAN: Will be to consider HIDA scan to determine the need for surgery. MD TIARRA Calzada/ALEJANDRO/VITO/MANA TID: [id number] RECEIPT: [id number] cc: Mariano Hammond MD
[2024-08-27 01:00] VITALS: BP 138/76; PULSE 60; RESP 17; TEMP 98; O2SAT 96
[2024-08-27 05:00] VITALS: BP 124/66; PULSE 56; RESP 16; TEMP 98; O2SAT 97
[2024-08-27 06:29] LABS: Eosinophils # (auto) 0.1 10 ^3/uL (0-0.8); Hemoglobin 11.1 g/dL (12.2-16.2); Monocytes # (auto) 0.4 10 ^3/uL (0-1.3)
[2024-08-27 06:31] LABS: Basophils # (auto) 0 10 ^3/uL (0-0.2); Basophils % (auto) 0.4 % (0.0-2.0); Eosinophils % (auto) 0.9 % (0.0-7.0); Hematocrit 35.2 % (36.0-46.0); Lymphocytes # (auto) 1.3 10 ^3/uL (0.4-5.4); Lymphocytes % (auto) 21.2 % (10.0-50.0); Mean Corpuscular Hemoglobin 25.4 pg (28.0-32.0); Mean Corpuscular Hgb Conc. 31.7 g/dL (32.0-36.0); Mean Corpuscular Volume 80.1 fL (80.0-100.0); Monocytes % (auto) 7.3 % (0.0-12.0); Neutrophils # (auto) 4.3 10 ^3/uL (1.6-8.6); Neutrophils % (auto) 70.2 % (37.0-80.0); Nucleated Red Blood Cells % 0.1 %; Platelet Count (auto) 251 10^3/uL (140-450); Red Blood Cells 4.39 10^6/uL (4.0-5.20); Red Cell Distribution Width 22.3 % (11.8-14.3); White Blood Cell 6.1 10^3/uL (4.4-10.8)
[2024-08-27 06:37] LABS: Alanine Aminotransferase 35 U/L (7-40); Alkaline Phosphatase 98 U/L (46-116); Anion Gap 10 (5-15); Aspartate Aminotransferase 44 U/L (13-40); Calcium 9.2 mg/dL (8.7-10.4); Carbon Dioxide 24 mmol/L (20-31); Chloride 106 mmol/L (98-107); Glucose 82 mg/dL (74-106); Sodium 140 mmol/L (136-145)
[2024-08-27 06:38] LABS: Albumin 3.2 g/dL (3.2-4.8); Bilirubin, Total 0.6 mg/dL (0.2-1.0)
[2024-08-27 06:51] LABS: BUN/Creatinine Ratio 6.7 (10.0-20.0); Blood Urea Nitrogen < 5 mg/dL (9-23)
[2024-08-27 09:00] VITALS: BP 159/99; PULSE 70; RESP 16; TEMP 98.1; O2SAT 99
[2024-08-27 13:00] VITALS: BP 148/91; PULSE 77; RESP 15; TEMP 98.1; O2SAT 98
[2024-08-27] MEDS: HYDROcodone-ACET 5/325MG TAB PO PRN (16:00)
[2024-08-27 17:00] VITALS: BP 144/73; PULSE 59; RESP 16; TEMP 97.7; O2SAT 97
--- NOTE | 2024-08-27 17:57 | DVHPN2 ---
Progress Note - Dictate Date Seen: Aug 27, 2024 Medical Necessity Reason Pt with a Central, PICC or Fol: No Subjective Clinically stable with complains of mild abdominal discomfort. Waiting for investigative studies to be completed. Tolerating clear liquid diet. vital signs Vital Sign Date Time Temp Pulse Resp B/P (MAP) Pulse Ox O2 Delivery O2 Flow Rate FiO2 08/27/24 17:00 97.7 59 16 144/73 (96) 97 97.7 08/27/24 08:00 Room Air* 0 21 Total Intake and Output 08/26/24 08/26/24 08/27/24 15:00 23:00 07:00 Intake Total 1100 ml 0 ml Output Total 0 ml Balance 1100 ml 0 ml medications Current Medications Medications Dose Ordered Sig/Sruthi Route Start Time Stop Time Status Last Admin Dose Admin Pantoprazole Sodium 40 mg DAILY IV 08/26/24 10:00 08/27/24 09:27 40 MG Acetaminophen/ Hydrocodone Bitart 1 tab Q6HPRN PRN PO 08/26/24 02:30 08/27/24 16:00 1 TAB Acetaminophen 650 mg Q6HPRN PRN PO 08/26/24 02:30 Enoxaparin Sodium 40 mg DAILY SC 08/26/24 10:00 08/27/24 09:32 40 MG Sodium Chloride 1,000 ml @ 100 mls/hr Q10H IV 08/26/24 03:30 08/27/24 09:27 100 MLS/HR Ondansetron HCl 4 mg Q4HP PRN IV 08/26/24 10:30 08/27/24 14:07 4 MG Hydromorphone HCl 0.25 mg Q4HPRN PRN IV 08/26/24 15:15 08/27/24 14:10 0.25 MG objective Alert awake oriented x3. Heart regular rate rhythm S1 and S2. Lungs fair air movement without rales wheezes. Abdomen soft minimal tenderness in the epigastric region without rebound or guarding. Positive bowel sounds. Extremities no edema. Positive pulses. laboratory and microbiology Laboratory Tests 08/27/24 05:36 Test 08/27/24 05:36 Range/Units Serum Glucose 82 74-106 mg/dL Assessment/Plan Continue clear liquid diet and rest of supportive care and treatment as she is on. Otherwise further clinical management per clinical course, pending evaluations and studies and recommendations from the consultants. Patient encouraged activity as much as possible while in the hospital. Discussed with the patient and her nurse regarding care plan. Problems(with codes): (1) Abdominal pain (2) Nausea and vomiting (3) Cholelithiasis Plan discussed with: Other BALJEET MARVIN MD Aug 27, 2024 17:57
--- NOTE | 2024-08-27 19:48 | DVHPN2 ---
Progress Note - Dictate Date Seen: Aug 27, 2024 Medical Necessity Reason Pt with a Central, PICC or Fol: No Subjective No new complaints On clear liquid diet c/o intermittent nausea and RUQ pain vital signs Vital Sign Date Time Temp Pulse Resp B/P (MAP) Pulse Ox O2 Delivery O2 Flow Rate FiO2 08/27/24 18:51 60 18 148/84 08/27/24 17:00 97.7 97 97.7 08/27/24 08:00 Room Air* 0 21 Total Intake and Output 08/26/24 08/26/24 08/27/24 15:00 23:00 07:00 Intake Total 1100 ml 0 ml Output Total 0 ml Balance 1100 ml 0 ml medications Current Medications Medications Dose Ordered Sig/Sruthi Route Start Time Stop Time Status Last Admin Dose Admin Pantoprazole Sodium 40 mg DAILY IV 08/26/24 10:00 08/27/24 09:27 40 MG Acetaminophen/ Hydrocodone Bitart 1 tab Q6HPRN PRN PO 08/26/24 02:30 08/27/24 16:00 1 TAB Acetaminophen 650 mg Q6HPRN PRN PO 08/26/24 02:30 Enoxaparin Sodium 40 mg DAILY SC 08/26/24 10:00 08/27/24 09:32 40 MG Sodium Chloride 1,000 ml @ 100 mls/hr Q10H IV 08/26/24 03:30 08/27/24 09:27 100 MLS/HR Ondansetron HCl 4 mg Q4HP PRN IV 08/26/24 10:30 08/27/24 18:51 4 MG Hydromorphone HCl 0.25 mg Q4HPRN PRN IV 08/26/24 15:15 08/27/24 18:51 0.25 MG objective General Appearance: No Apparent Distress, Normal; HEENT: Normal ENT Inspection, Pharynx Normal, Respiratory: Chest Non-Tender, Lungs Clear, No Accessory Muscle Use, No Respiratory Distress, Normal Breath Sounds Cardiovascular: No Edema, No JVD, No Murmur, No Gallop, Normal Peripheral Pulses, Regular Rate/Rhythm Gastrointestinal: Epigastric (tenderness), No Organomegaly, Non Tender, No Pulsatile Mass, Normal Bowel Sounds, Soft, Tenderness (epigastric) Extremities: No calf tenderness, Normal capillary refill, Normal inspection, Normal range of motion, Non-tender, No pedal edema laboratory and microbiology Laboratory Tests 08/27/24 05:36 Test 08/27/24 05:36 Range/Units Serum Glucose 82 74-106 mg/dL Problems(with codes): (1) Abdominal pain (2) Cholecystitis (3) Projectile vomiting with nausea (4) Right upper quadrant pain (5) Gallstones (6) Nausea and vomiting Prognosis PLAN HIDA Scan IVF IV ABX Advance AISHA Plan discussed with: Patient, Other (Dr York) MALORIE LEO MD Aug 27, 2024 19:48
[2024-08-27 21:00] VITALS: BP 146/78; PULSE 64; RESP 18; TEMP 98.2; O2SAT 100
--- NOTE | 2024-08-27 21:17 | DVHPN2 ---
Progress Note Date Seen: Aug 27, 2024 Medical Necessity Reason Pt with a Central, PICC or Fol: No Objective vital signs Vital Sign Date Time Temp Pulse Resp B/P (MAP) Pulse Ox O2 Delivery O2 Flow Rate FiO2 08/27/24 18:51 60 18 148/84 08/27/24 17:00 97.7 97 97.7 08/27/24 08:00 Room Air* 0 21 Total Intake and Output 08/26/24 08/26/24 08/27/24 15:00 23:00 07:00 Intake Total 1100 ml 0 ml Output Total 0 ml Balance 1100 ml 0 ml medications Current Medications Medications Dose Ordered Sig/Sruthi Route Start Time Stop Time Status Last Admin Dose Admin Pantoprazole Sodium 40 mg DAILY IV 08/26/24 10:00 08/27/24 09:27 40 MG Acetaminophen/ Hydrocodone Bitart 1 tab Q6HPRN PRN PO 08/26/24 02:30 08/27/24 16:00 1 TAB Acetaminophen 650 mg Q6HPRN PRN PO 08/26/24 02:30 Enoxaparin Sodium 40 mg DAILY SC 08/26/24 10:00 08/27/24 09:32 40 MG Sodium Chloride 1,000 ml @ 100 mls/hr Q10H IV 08/26/24 03:30 08/27/24 09:27 100 MLS/HR Ondansetron HCl 4 mg Q4HP PRN IV 08/26/24 10:30 08/27/24 18:51 4 MG Hydromorphone HCl 0.25 mg Q4HPRN PRN IV 08/26/24 15:15 08/27/24 18:51 0.25 MG laboratory and microbiology Laboratory Tests 08/27/24 05:36 Test 08/27/24 05:36 Range/Units Serum Glucose 82 74-106 mg/dL Problem List/Assessment/Plan Problem List/Assessment/Plan AFEBRILE VSS ABD SOFT LFT TRENDING DOWN R/O AC CHOLECYSTITIS PROCEED WITH HIDA SCAN Plan discussed with: BRYAN Matute MD Aug 27, 2024 21:17
[2024-08-28] VITALS (7 sets, daily range): BP systolic 106–135; BP diastolic 45–81; PULSE 59–80; RESP 16–17; TEMP 97.2–98.6; O2SAT 97–100
[2024-08-28 06:25] LABS: Basophils # (auto) 0 10 ^3/uL (0-0.2); Basophils % (auto) 0.4 % (0.0-2.0); Eosinophils # (auto) 0 10 ^3/uL (0-0.8); Hematocrit 33.7 % (36.0-46.0); Lymphocytes # (auto) 1.5 10 ^3/uL (0.4-5.4); Monocytes # (auto) 0.6 10 ^3/uL (0-1.3); Nucleated Red Blood Cells % 0.1 %
[2024-08-28 06:29] LABS: Eosinophils % (auto) 0.4 % (0.0-7.0); Hemoglobin 10.7 g/dL (12.2-16.2); Lymphocytes % (auto) 22.7 % (10.0-50.0); Mean Corpuscular Hemoglobin 25.1 pg (28.0-32.0); Mean Corpuscular Hgb Conc. 31.7 g/dL (32.0-36.0); Mean Corpuscular Volume 79.3 fL (80.0-100.0); Monocytes % (auto) 8.8 % (0.0-12.0); Neutrophils # (auto) 4.5 10 ^3/uL (1.6-8.6); Neutrophils % (auto) 67.7 % (37.0-80.0); Platelet Count (auto) 247 10^3/uL (140-450); Red Blood Cells 4.26 10^6/uL (4.0-5.20); White Blood Cell 6.6 10^3/uL (4.4-10.8)
[2024-08-28 06:40] LABS: Alanine Aminotransferase 27 U/L (7-40); Alkaline Phosphatase 96 U/L (46-116); Anion Gap 9 (5-15); Aspartate Aminotransferase 27 U/L (13-40); Calcium 9.3 mg/dL (8.7-10.4); Carbon Dioxide 25 mmol/L (20-31); Chloride 103 mmol/L (98-107); Glucose 77 mg/dL (74-106); Potassium 2.8 mmol/L (3.5-5.1); Sodium 137 mmol/L (136-145)
[2024-08-28 06:41] LABS: Albumin 3.2 g/dL (3.2-4.8); Bilirubin, Total 0.6 mg/dL (0.2-1.0)
[2024-08-28 06:42] LABS: BUN/Creatinine Ratio 7.4 (10.0-20.0); Blood Urea Nitrogen < 5 mg/dL (9-23)
[2024-08-28 07:14] LABS: Red Cell Distribution Width 22.7 % (11.8-14.3)
--- NOTE | 2024-08-28 08:36 | DVH ---
Procedure: DC NM HIDA SCAN Exam Date: 08/27/2024 04:41 PM Clinical History: Gallstones with the abdominal pain Comparison Study: [facility] HIDA SCAN on DOS: 05/21/24 Nuclear Medicine Hepatobiliary Scan. Technique: Following the intravenous administration of 5.5 mCi of technetium 99m labeled Choletec multiple plana r abdominal planar images were obtained in anterior projection in 5 minute intervals for45 minutes . Right lateral images were obtained at 45 minutes after injection. Findings: The liver appears grossly normal in size. There is no abnormal persistence of the cardiac or blood po ol activity. There is prompt visualization of the gallbladder and excretion of activity into the smal l bowel. Impression: Unremarkable hepatobiliary study without evidence of acute cholecystitis.
[2024-08-28] MEDS: POTASSIUM CHLORIDE 20 MEQ, LIDOCAINE 1% (LOCAL ANESTH.) 2 ML in SODIUM CHL 0.9% 100 ML IV ONE (10:03)
[2024-08-28] MEDS: POTASSIUM CHL 20 Meq TABLET PO ONE (10:03)
--- NOTE | 2024-08-28 12:28 | DVHCONRES ---
Date Seen: Aug 28, 2024 Resident Creating Document: CHEYENNE BECERRA Jr., MD Referring Physician Jaylen Reason for Consultation abd. pain History of Present Illness Mrs. Mj Sun is a 39 year old female with a history of gallstones, hysterectomy who presents with a chief complaint of abdominal pain, nausea and vomiting. Patient states she is experiencing epigastric pain that radiates to her back RT side as well as nausea and vomiting. She experienced similar symptoms when she had gallstones. Patient CT abdomen and pelvis with IV contrast resulted : Distended gallbladder and dilated common bile duct measuring up to 7 mm. Findings are concerning for possible biliary obstruction. Consider further evaluation with ultrasound or HIDA scan. Status post hysterectomy with the 4.7 cm hypodensity in the left adnexa. This can be further evaluated with pelvic ultrasound if clinically indicated. Patient Total bilirubin 1.1, AST 85, ALT 50, ALP 125. Patient denies, constipation, nausea, vomiting, diarrhea. Patient admitted for further evaluation. Patient has been worked up for upper GI as well as cholecystitis. On the MRCP there was a question of possible IVC thrombosis partial. Patient remains asymptomatic with no leg swelling. CT scan demonstrated no thrombus in the IVC. Past Medical History gallstones, hysterectomy Past Surgical History Hysterectomy Family History: Cervical cancer G8 MOTHER Social History Nonsmoker nondrinker Allergies: Coded Allergies: No Known Drug Allergy (Verified Allergy, Unknown, 05/07/24) Home Meds Active Scripts Acetaminophen W/ Codeine (Tylenol W/Cod #3) 1 Tab Tb, 1 TAB PO Q6HPRN PRN, #14 TAB Prov:BALJEET MARVIN MD 06/30/24 Doxycycline (Monohydrate) (Doxycycline) 100 Mg Cap, 100 MG PO BID, #14 CAP Prov:BALJEET MARVIN MD 06/30/24 Pantoprazole Sodium Sesquihydr (Pantoprazole Sodium) 40 Mg Tab, 40 MG PO DAILY, #30 TAB Prov:BALJEET MARVIN MD 06/30/24 Ondansetron Odt 4MG Tab (ZOFRAN PO) 4 Mg Tb, 4 MG PO Q6HPRN PRN, #10 TAB ODT TAB-DISSOLVE IN MOUTH, THEN SWALLOW Prov:BALJEET MARVIN MD 05/19/24 Metronidazole (Flagyl) 500 Mg Tab, 1 TAB PO BID, #10 TAB Prov:BALJEET MARVIN MD 05/19/24 Review of Systems Other than the HPI findings no other positive findings on review of systems. Vital Signs Vital Signs Date Time Temp Pulse Resp B/P (MAP) Pulse Ox O2 Delivery O2 Flow Rate FiO2 08/28/24 09:07 98.6 68 17 110/65 (80) 100 98.6 08/28/24 08:00 Room Air* 0 21 Physical Exam Head eyes ears nose and throat exam eyes are nonicteric conjunctiva is pink neck was supple no JVD no lymphadenopathy no carotid bruits lungs are clear to auscultation heart was regular rate and rhythm abdomen mildly distended with mil d epigastric tenderness. Lower extremities palpable femoral and pedal pulses bilaterally. No edema. Labs/Diagnostic Data Labs Test 08/28/24 05:26 08/27/24 05:36 08/26/24 03:03 08/25/24 21:46 Range/Units White Blood Count 6.6 4.4-10.8 10^3/uL Red Blood Count 4.26 4.0-5.20 10^6/uL Hemoglobin 10.7 L 12.2-16.2 g/dL Hematocrit 33.7 L 36.0-46.0 % Mean Corpuscular Volume 79.3 L 80.0-100.0 fL Mean Corpuscular Hemoglobin 25.1 L 28.0-32.0 pg Mean Corpuscular Hemoglobin Concent 31.7 L 32.0-36.0 g/dL Red Cell Distribution Width 22.7 H 11.8-14.3 % Platelet Count 247 140-450 10^3/uL Mean Platelet Volume 10.6 6.9-10.8 fL Neutrophils (%) (Auto) 67.7 37.0-80.0 % Lymphocytes (%) (Auto) 22.7 10.0-50.0 % Monocytes (%) (Auto) 8.8 0.0-12.0 % Eosinophils (%) (Auto) 0.4 0.0-7.0 % Basophils (%) (Auto) 0.4 0.0-2.0 % Neutrophils # (Auto) 4.5 1.6-8.6 10 ^3/uL Lymphocytes # (Auto) 1.5 0.4-5.4 10 ^3/uL Monocytes # (Auto) 0.6 0-1.3 10 ^3/uL Eosinophils # (Auto) 0 0-0.8 10 ^3/uL Basophils # (Auto) 0 0-0.2 10 ^3/uL Nucleated Red Blood Cells 0.1 % Sodium Level 137 136-145 mmol/L Potassium Level 2.8 L 3.5-5.1 mmol/L Chloride Level 103 98-107 mmol/L Carbon Dioxide Level 25 20-31 mmol/L Anion Gap 9 5-15 Blood Urea Nitrogen < 5 L 9-23 mg/dL Creatinine 0.68 0.550-1.02 mg/dL Glomerular Filtration Rate Calc 115 >90 mL/min BUN/Creatinine Ratio 7.4 L 10.0-20.0 Serum Glucose 77 74-106 mg/dL Calcium Level 9.3 8.7-10.4 mg/dL Total Bilirubin 0.6 0.2-1.0 mg/dL Aspartate Amino Transferase (AST) 27 13-40 U/L Alanine Aminotransferase (ALT) 27 7-40 U/L Alkaline Phosphatase 96 46-116 U/L Total Protein 7.0 5.7-8.2 g/dL Albumin 3.2 3.2-4.8 g/dL Prothrombin Time 11.4 9.3-11.8 sec Prothrombin Time INR 1.08 0.9-1.15 Lactic Acid Level 1.2 0.4-2.0 mmol/L Lipase 47 12-53 U/L MRI MRCP MRI Attending Name: PINEDA SHEARER COMPARISON: CT scan of the abdomen and pelvis dated 08/26/2024, gallbladder sonogram dated 08/25/2024 INDICATION: obstructed common bile duct , distended gallbldder TECHNIQUE: MRI of the abdomen and MRCP was performed without the use of intra venous contrast using a MRI imaging system . Three-dimensional MRCP was performed using maximum intensity projection reconstruction on an independent workstation under concurrent supervision. FINDINGS: Moderately distended gallbladder containing numerous multifaceted calculi measuring up to 1.1 cm. No gallbladder wall thickening. The common bile duct is dilated measuring up to 0.8 cm in caliber. No choledocholithiasis noted. No distal obstructive lesion. No ampullary mass identified. No discrete pancreatic head lesion. The pancreatic duct is normal in caliber. Edema noted surrounding the pancreatic head and the adjacent duodenal extending to the gallbladder fossa. There is hepatomegaly and hepatic steatosis. A 1.2 cm thick-walled T2 hyperintense lesion noted in the left hepatic lobe, segment IV that is incompletely evaluated in the current exam. This appeared hypodense, hyp oenhancing in the recent CT scan was not identified in the ultrasound. Few subcentimeter T2 hyperintense lesions in the left hepatic lobe, segment II and III that are too small to characterize but probably cysts or biliary hamartomas. Moderate-size elongated filling defect in the IVC extending from the bifurcation to the level of the origin of renal veins. Caudally, is seems to extend to the bilateral the bilateral common iliac arteries and possibly to the femoral veins. The spleen, adrenal glands and kidneys unremarkable. Visualized bowel are grossly unremarkable. Partially seen at least 3.5 cm left adnexal cysts. Base of the lungs are clear. No acute osseous or soft tissue abnormality. Mild rightward curvature of the thoracic spine. IMPRESSION: 1. 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 Further evaluation with venous Doppler of the bilateral lower extremities is recommended. 2. Moderate fat stranding adjacent to the pancreatic head , and duodenum extending to the gallbladder fossa this could be secondary to venous thrombosis or reflect pancreatitis. No evidence of duodenitis. Cholelithiasis is unlikely as no significant gallbladder wall edema is present . Recommend clinical and biochemical correlation . Visualized cystic duct appears patent in this study. Further evaluation with HIDA scan could be completed if clinically warranted . 3. Mildly dilated CBD, 0.8 cm in caliber without choledocholithiasis. 4. Moderately distended gallbladder and cholelithiasis. 5. Hepatomegaly and hepatic steatosis. 6. Several T2 hyperintense foci in the left hepatic lobe mostly subcentimeter with the largest measuring 1.2 cm. This was not identified in the prior ultrasound and vaguely seen as hypodense, hypoenhancing lesion in the accompanying CT scan. Recommend follow-up by MRI without and with IV contrast utilizing a dedicated hepatic protocol in 3-6 months. Bilateral lower extremity venous duplex Clinical History: abnormal findings in MRCP/MRI suggesting DVT in thrombus Comparison: US BILAT LOWER DVT on DOS: 05/13/24 Technique: Duplex Doppler evaluation of the deep venous systems of both lower extremities from the common femoral veins to the popliteal veins including color Doppler and spectral/pulsed waveform analysis was performed. Findings: RIGHT SIDE: The common femoral vein demonstrates appropriate compressibility and waveform variability. There is compressibility/patency of the great saphenous vein at the proximal thigh. The femoral vein demonstrates appropriate compressibility and waveform variability. The deep femoral vein demonstrates appropriate compressibility and waveform variability. The popliteal vein demonstrates appropriate compressibility and waveform variability. There is color flow at the tibioperoneal trunk and in the posterior tibial vein. LEFT SIDE: The common femoral vein demonstrates appropriate compressibility and waveform variability. There is compressibility/patency of the great saphenous vein at the proximal thigh. The femoral vein demonstrates appropriate compressibility and waveform variability. The deep femoral vein demonstrates appropriate compressibility and waveform variability. The popliteal vein demonstrates appropriate compressibility and waveform varia bility. There is color flow at the tibioperoneal trunk and in the posterior tibial vein. Impression: 1. No right or left femoropopliteal venous thrombosis. Assessment Abdominal pain I do not believe the MRCP finding are consistent with IVC occlusion based on negative venous ultrasound of the legs as well as a CTA demonstrating no venous occlusive disease. Continue to evaluate abdominal pain for other sources. Plan/Recommendation Abdominal pain I do not believe the MRCP finding are consistent with IVC occlusion based on negative venous ultrasound of the legs as well as a CTA demonstrating no venous occlusive disease. Continue to evaluate abdominal pain for other sources. Plan discussed with: Patient CHEYENNE BECERRA Jr., MD Aug 28, 2024 12:27
--- NOTE | 2024-08-28 12:59 | DVHPN2 ---
Progress Note - Dictate Date Seen: Aug 28, 2024 Medical Necessity Reason Pt with a Central, PICC or Fol: No Subjective Patient still common his abdominal discomfort. HIDA scan is and nontender. Evaluated by vascular surgery recommend endovascular interventions are further workup. vital signs Vital Sign Date Time Temp Pulse Resp B/P (MAP) Pulse Ox O2 Delivery O2 Flow Rate FiO2 08/28/24 12:36 98.1 66 16 112/64 (80) 97 98.1 08/28/24 08:00 Room Air* 0 21 Total Intake and Output 08/27/24 08/27/24 08/28/24 15:00 23:00 07:00 Intake Total 600 ml 300 ml Balance 600 ml 300 ml medications Current Medications Medications Dose Ordered Sig/Sruthi Route Start Time Stop Time Status Last Admin Dose Admin Pantoprazole Sodium 40 mg DAILY IV 08/26/24 10:00 08/28/24 10:04 40 MG Acetaminophen/ Hydrocodone Bitart 1 tab Q6HPRN PRN PO 08/26/24 02:30 08/28/24 10:20 1 TAB Acetaminophen 650 mg Q6HPRN PRN PO 08/26/24 02:30 Enoxaparin Sodium 40 mg DAILY SC 08/26/24 10:00 08/28/24 10:04 40 MG Ondansetron HCl 4 mg Q4HP PRN IV 08/26/24 10:30 08/28/24 03:14 4 MG Hydromorphone HCl 0.25 mg Q4HPRN PRN IV 08/26/24 15:15 08/28/24 08:01 0.25 MG objective Abdomen bloated soft positive active bowel sounds. No rebound or guarding. Heart regular rate and rhythm S1 and S2. Lungs without rales wheezes. Extremities no edema laboratory and microbiology Laboratory Tests 08/28/24 05:26 Test 08/28/24 05:26 Range/Units Serum Glucose 77 74-106 mg/dL Assessment/Plan Given no further intervention from vascular surgery we will notify general surgeon to review had a scan and other tests to see if she is a candidate for gallbladder surgery unit patient still complains of abdominal discomfort. Meantime continue her on clear liquid diet. Otherwise further recommendations for recommendations from the general surgeon. This with the patient's nurse regarding care plan. Problems(with codes): (1) Cholelithiasis (2) Abdominal pain (3) Right upper quadrant pain (4) Nausea and vomiting Plan discussed with: Other BALJEET MARVIN MD Aug 28, 2024 12:58
[2024-08-28 15:51] LABS: Potassium 3.9 mmol/L (3.5-5.1)
[2024-08-28 15:59] LABS: Magnesium 1.7 mg/dL (1.6-2.6)
--- NOTE | 2024-08-28 16:31 | DVHPN2 ---
Progress Note Date Seen: Aug 28, 2024 Medical Necessity Reason Pt with a Central, PICC or Fol: No Objective vital signs Vital Sign Date Time Temp Pulse Resp B/P (MAP) Pulse Ox O2 Delivery O2 Flow Rate FiO2 08/28/24 13:39 75 16 118/65 08/28/24 12:36 98.1 97 98.1 08/28/24 08:00 Room Air* 0 21 Total Intake and Output 08/27/24 08/27/24 08/28/24 15:00 23:00 07:00 Intake Total 600 ml 300 ml Balance 600 ml 300 ml medications Current Medications Medications Dose Ordered Sig/Sruthi Route Start Time Stop Time Status Last Admin Dose Admin Pantoprazole Sodium 40 mg DAILY IV 08/26/24 10:00 08/28/24 10:04 40 MG Acetaminophen/ Hydrocodone Bitart 1 tab Q6HPRN PRN PO 08/26/24 02:30 08/28/24 10:20 1 TAB Acetaminophen 650 mg Q6HPRN PRN PO 08/26/24 02:30 Enoxaparin Sodium 40 mg DAILY SC 08/26/24 10:00 08/28/24 10:04 40 MG Ondansetron HCl 4 mg Q4HP PRN IV 08/26/24 10:30 08/28/24 13:38 4 MG Hydromorphone HCl 0.25 mg Q4HPRN PRN IV 08/26/24 15:15 08/28/24 13:39 0.25 MG laboratory and microbiology Laboratory Tests 08/28/24 15:12 08/28/24 05:26 Test 08/28/24 05:26 Range/Units Serum Glucose 77 74-106 mg/dL Problem List/Assessment/Plan Problem List/Assessment/Plan AFEBRILE VSS ABD SOFT LFT TRENDING DOWN HIDA SCAN NEG ALLOW CLEAR LIQUIDS AND ADVANCE ROSA MARIA NO INDICATION FOR URGENT SURGERY CLEARED FOR DISCHARGE Plan discussed with: Patient BRYAN LEO MD Aug 28, 2024 16:31
--- NOTE | 2024-08-28 19:33 | DVHPN2 ---
Progress Note - Dictate Date Seen: Aug 28, 2024 Medical Necessity Reason Pt with a Central, PICC or Fol: No Subjective No new complaints On clear liquid diet c/o intermittent nausea and RUQ pain Abdominal symptoms are improving Liver enzymes have normalized, HIDA scan is negative Of interest patient has had cholelithiasis for many years and I had performed an ERCP for her in 2009 DATE OF OPERATION:12/05/2009 PROCEDURE: ERCP. PREOPERATIVE INDICATION: The patient is a [id number] with cholelithiasis, back pain, and elevated liver enzymes. POSTOPERATIVE DIAGNOSES: 1. She had a long mildly inflamed ampulla. 2. She had a normal pancreatic duct. 3. Normal CBD with no evidence of filling defect or stones. PROCEDURE PERFORMED BY: Malorie Terry M.D. GI NURSE: Shree. ANESTHESIA: MAC. vital signs Vital Sign Date Time Temp Pulse Resp B/P (MAP) Pulse Ox O2 Delivery O2 Flow Rate FiO2 08/28/24 16:43 98.6 63 16 120/63 (82) 99 98.6 08/28/24 08:00 Room Air* 0 21 Total Intake and Output 08/27/24 08/27/24 08/28/24 14:59 22:59 06:59 Intake Total 600 ml 300 ml Balance 600 ml 300 ml medications Current Medications Medications Dose Ordered Sig/Sruthi Route Start Time Stop Time Status Last Admin Dose Admin Pantoprazole Sodium 40 mg DAILY IV 08/26/24 10:00 08/28/24 10:04 40 MG Acetaminophen/ Hydrocodone Bitart 1 tab Q6HPRN PRN PO 08/26/24 02:30 08/28/24 10:20 1 TAB Acetaminophen 650 mg Q6HPRN PRN PO 08/26/24 02:30 Enoxaparin Sodium 40 mg DAILY SC 08/26/24 10:00 08/28/24 10:04 40 MG Ondansetron HCl 4 mg Q4HP PRN IV 08/26/24 10:30 08/28/24 18:08 4 MG Hydromorphone HCl 0.25 mg Q4HPRN PRN IV 08/26/24 15:15 08/28/24 13:39 0.25 MG objective General Appearance: No Apparent Distress, Normal; HEENT: Normal ENT Inspection, Pharynx Normal, Respiratory: Chest Non-Tender, Lungs Clear, No Accessory Muscle Use, No Respiratory Distress, Normal Breath Sounds Cardiovascular: No Edema, No JVD, No Murmur, No Gallop, Normal Peripheral Pulses, Regular Rate/Rhythm Gastrointestinal: Epigastric (tenderness), No Organomegaly, Non Tender, No Pulsatile Mass, Normal Bowel Sounds, Soft, Tenderness (epigastric) Extremities: No calf tenderness, Normal capillary refill, Normal inspection, Normal range of motion, Non-tender, No pedal edema laboratory and microbiology Laboratory Tests 08/28/24 15:12 08/28/24 05:26 Test 08/28/24 05:26 Range/Units Serum Glucose 77 74-106 mg/dL HIDA SCAN Negative Problems(with codes): (1) Biliary colic (2) Abdominal pain (3) Cholelithiasis (4) Nausea and vomiting (5) Abdominal pain (6) Gallstones Prognosis Plan Surgical consult noted recommend conservative management Advance diet as tolerated Patient was advised follow up in my office as an outpatient for ongoing management and observation Hepatitis panel and ANNE were negative I Believe based on reviewing my previous ERCP from is patient 2009 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
[2024-08-29 01:00] VITALS: BP 104/62; PULSE 54; RESP 16; TEMP 97.9; O2SAT 97
[2024-08-29 05:00] VITALS: BP 101/48; PULSE 64; RESP 16; TEMP 98; O2SAT 100
[2024-08-29 08:00] VITALS: O2SAT 98
[2024-08-29 09:25] VITALS: BP 102/57; PULSE 54; RESP 16; TEMP 98.2; O2SAT 99
== END 2024-08-29 11:59 | disposition left against medical advice (07) ==
LOC: ER 20:53 → EDBD 20:53 → OVERFLOW 08-26 03:17 → WEST WING 08-26 04:15
PROVIDERS: ADMIT Nurse Practitioner Family; ATTEND Nurse Practitioner Family
DX: K80.20 Calculus of gallbladder without cholecystitis without obstruction (principal); F17.200 Nicotine dependence, unspecified, uncomplicated; Z53.29 Procedure and treatment not carried out because of patient's decision for other reasons; R74.01 Elevation of levels of liver transaminase levels; Z79.899 Other long term (current) drug therapy; Z80.49 Family history of malignant neoplasm of other genital organs; Z90.710 Acquired absence of both cervix and uterus; Z79.1 Long term (current) use of non-steroidal anti-inflammatories (NSAID); Z79.2 Long term (current) use of antibiotics
CPT/HCPCS: 36415; 74181; 76705; 78226; 80053; 83605; 83690; 83735; 84132; 85025; 85610; 86038; 93970; 96361; 96374; 96375; 96376; 99291; G0378; J2003; J2405; J2470; J3490